=== PATIENT | female | born 1940 | race Caucasian/White ===

== ENCOUNTER 2020-05-23 06:02 | Inpatient (IN) | payer MEDICARE, MEDICAID, SELFPAY ==
[2020-05-23] VITALS (8 sets, daily range): BP systolic 117–141; BP diastolic 54–72; PULSE 65–94; RESP 18–22; TEMP 36.3–36.8; O2SAT 85–96; BMI 21.9
--- NOTE | ~2020-05-23 | XR_ITS ---
EXAMINATION: XR chest 1V portable DATE: 05/23/2020 06:53 INDICATION: COVID. Shortness of breath. TECHNIQUE: frontal view of the chest was obtained. COMPARISON: None FINDINGS: Biapical pleural-parenchymal scarring. Mild increased interstitial pattern in the lateral lower lung zones. No pleural effusion or pneumothorax. The cardiomediastinal silhouette is normal. Vertebroplast ies at a couple levels in the upper lumbar spine. IMPRESSION: 1. Mild increased interstitial pattern in the lower lung zones which could represent mild pulmonary e marysol or bronchitis. Reviewed, dictated and finalized at location A. NT INTEGRATION MANAGER IMPRESSION: 1. Mild increased interstitial pattern in the lower lung zones which could repr esent mild pulmonary edema or bronchitis.
--- NOTE | 2020-05-23 05:59 | ED.SOB ---
HPI - SOB/Dyspnea General Chief Complaint: Shortness of Breath/Dyspnea Stated Complaint: SOB Source: EMS Mode of arrival: EMS Limitations: dementia History of Present Illness HPI Narrative: Patient is an 80-year-old female with history of dementia, recent Covid diagnosis who presents to the emergency department for evaluation of low oxygen saturation. Per care facility, patient had oxygen saturation of 77% on room air this morning. EMS was called, at the time of arrival, oxygen saturation per EMS is 87% on room air. Patient was transported to our facility in stable condition. Apparently, she refused IV placement EMS. Patient refusing to wear oxygen in the ER. She is refusing answer any questions. She will state her name. She denies any pain. Patient states her morning is not going very well and she does not want to be here. Pt is a DNR. Related Data Home Medications Medication Instructions Recorded Confirmed aspirin [Aspir-81] 81 mg PO DAILY 05/23/20 buspirone 5 mg PO BID 05/23/20 buspirone 10 mg PO TID 05/23/20 calcium [Oyster Shell Calcium] mg 05/23/20 cholecalciferol (vitamin D3) 125 mcg PO DAILY 05/23/20 [Vitamin D3] diphenhydramine HCl [Benadryl] 25 mg PO HS PRN 05/23/20 divalproex [Depakote ER] mg PO 05/23/20 donepezil 5 mg PO HS 05/23/20 ferrous sulfate 143 mg PO DAILY 05/23/20 ipratropium-albuterol [Combivent] spray INHALATION 05/23/20 levothyroxine 75 mcg PO DAILY 05/23/20 lorazepam [Ativan] 0.5 mg PO BID PRN 05/23/20 methotrexate sodium 2.5 mg PO WEEKLY 05/23/20 mirabegron [Myrbetriq] 25 mg PO DAILY 05/23/20 multivit-min #56-FA-vit K-Q10 tablet PO 05/23/20 [DEKAs Plus (folic acid)] polyethylene glycol 3350 [Miralax] 17 g PO BID 05/23/20 sennosides-docusate sodium [Senna 1 tab-cap PO HS 05/23/20 with Docusate Sodium] Allergies Allergy/AdvReac Type Severity Reaction Status Date / Time celecoxib [From Celebrex] Allergy Unknown Verified 05/23/20 06:24 codeine Allergy Unknown Verified 05/23/20 06:24 meperidine Allergy Unknown Verified 05/23/20 06:24 Review of Systems Review of Systems: ROS unobtainable: Yes unobtainable due to medical condition (dementia) [facility] Past Medical History Medical History (Updated 05/23/20 @ 06:35 by Maddy Gauthier MD) Dementia Exam Narrative: Exam Narrative: GENERAL: Awake, elderly, alert, thin HEAD: Normocephalic, atraumatic. EYES: PERRLA and EOMI. ENT: Nares clear, no rhinorrhea or epistaxis. Mucous membranes dry NECK: Supple. CHEST:No severe respiratory distress, mild tachypnea, breathing even and non labored, oxygen 75% on room air HEART: Regular rate, sinus rhythm ABDOMEN:Non distended, non tender EXTREMITIES: Normal range of motion. No edema. SKIN: Warm, dry, no rash. NEURO:No focal deficits. Alert and oriented x1-2, baseline for patient Course Vital Signs Vital signs: Vital Signs Temperature 36.5 C 05/23/20 06:00 Pulse Rate 82 05/23/20 06:00 Respiratory Rate 20 05/23/20 06:00 Blood Pressure 117/71 05/23/20 06:00 Pulse Oximetry 85 L 05/23/20 06:00 Temperature 36.5 C 05/23/20 06:00 Pulse Rate 86 05/23/20 06:52 Respiratory Rate 22 H 05/23/20 06:52 Blood Pressure 140/61 05/23/20 06:52 Pulse Oximetry 95 05/23/20 06:52 MDM - SOB/Dyspnea MDM Narrative Medical decision making narrative: Patient presented to the emergency department for evaluation of low oxygen saturation in the setting of recent Covid infection. Patient with dementia, is currently DNR status. Patient with oxygen saturations that dipped to as low as 77% on room air at the time of my assessment in the ER. Patient does not appear to have any damaris respiratory distress. She is somewhat reticent and participating in the history initially refusing stating that she does not want to be here and does not want to wear oxygen. After speaking with her daughter who is her emergency contact and power of commercial real estate attorney, patient's daughter was able t
--- NOTE | 2020-05-23 06:05 | ECG_ITS ---
Measurements Intervals [place] Rate: 84 P: 34 [place]: 160 QRS: 11 QRSD: 94 T: 2 QT: 341 QTc: 404 Interpretive Statements SINUS RHYTHM POSSIBLE LEFT ATRIAL ENLARGEMENT CONSIDER INFERIOR INFARCT, AGE INDETERMINATE BASELINE ARTIFACT- I, II, III, AVR, AVL, AVF, V4 ABNORMAL ECG Electronically Signed On 05-23-2020 7:17:51 [employer] by Nishant Montenegro D.O.
--- NOTE | 2020-05-23 06:07 | PC.NURSE ---
Patient refusing oxygen at this time.
--- NOTE | 2020-05-23 06:23 | PC.NURSE ---
Patient oxygen sat to 81%. ERP in room. Patient refusing to wear any oxygen.
[2020-05-23 06:30] LABS: Alveolar/Arterial O2 Gradient 61.7 mmHg; Base Excess ABG 0.2 mEq/l (+/-2.0); Carboxyhemoglobin 0.9 % THb (0-2.0); Fractional Inspired Oxygen 21 %; Methemoglobin ABG 0.2 %THb (0-1.5); Oxygen Content ABG 12.4 %vol (16.0-22.0); Oxygen Saturation ABG 83.3 % (95.0-100.0); Oxyhemoglobin 78.8 % THb (90.0-100.0); PCO2 ABG 35.8 mmHg (35.0-45.0); PO2 ABG 45.2 mmHg (80.0-100.0); PO2 FiO2 Ratio Arterial Blood 2.15 %; Reduced Hemoglobin 20.1 %THb (0-5.0); Total Hemoglobin 11.2 g/dL (12.0-18.0); pH ABG 7.444 (7.350-7.450)
[2020-05-23 06:30] LABS: Basophils Percent Auto 0.5 % (0.2-1.2); Eosinophils Absolute Auto 0.3 K/mm3 (0-0.3); Eosinophils Percent Auto 4.2 % (0-4.4); Hematocrit 34.4 % (37.0-47.0); Hemoglobin 10.8 g/dL (12.0-15.0); Immature Granulocyte Absolute 0.06 K/mm3 (0.00-0.031); Immature Granulocyte Percent A 0.8 % (0-0.5); Lymphocytes Absolute Auto 2.26 K/mm3 (0.9-3.2); Lymphocytes Percent Auto 30.5 % (18.3-44.2); Mean Corpuscular HGB Conc 31.4 g/dl (32-36); Mean Corpuscular Hemoglobin 29.3 pg (26-34); Mean Corpuscular Volume 93.5 fl (80-100); Mean Platelet Volume 9.5 fl (7.4-10.4); Monocytes Absolute Auto 0.7 K/mm3 (0.1-0.6); Monocytes Percent Auto 8.9 % (2.6-8.5); Neutrophils Absolute Auto 4.1 K/mm3 (1.3-6.7); Neutrophils Percent Auto 55.1 % (45.5-73.1); Platelet Count Result 189 k/mm3 (150-375); Red Blood Count 3.68 M/mm3 (4.2-5.4); Red Cell Distribution Width 22.8 % (11.5-14.5); White Blood Count 7.4 K/mm3 (4.5-10.0)
[2020-05-23 06:31] LABS: Device ROOM AIR; Site Drawn RIGHT BRACHIAL
[2020-05-23 06:40] LABS: INR 0.9; Prothrombin Time 13.2 Seconds (11.1-14.7)
[2020-05-23 06:41] LABS: Partial Thromboplastin Time 28.1 SECONDS (22.3-36.8)
[2020-05-23 06:45] LABS: Alanine Aminotransferase 12 U/L (4-35); Albumin Level 3.5 g/dL (3.5-5.1); Alkaline Phosphatase 76 U/L (38-126); Anion Gap 4 mmol/L (8-16); Aspartate Amino Transferase 34 U/L (14-36); Bilirubin,Total 0.2 mg/dL (0.2-1.3); Blood Urea Nitrogen 26 mg/dL (7-17); CRP 0.5 mg/dL (<1.0); Calcium 8.5 mg/dL (8.4-10.2); Carbon Dioxide 28 mmol/L (22-30); Chloride 107 mmol/L (98-107); Estimated Glomerular Filt Rate > 60; Glucose 87 mg/dL (65-105); Sodium 139 mmol/L (137-145)
--- NOTE | 2020-05-23 06:46 | PC.NURSE ---
[id number] Patient ambulated to phone to speak with her daughter, BLANCA. After speaking with her daughter, patient agreed to wear oxygen via NC. Patient placed on 2L via NC. Patient tolerating well.
[2020-05-23 06:53] LABS: NT Pro B Type Natriuretic Pept 348 PG/ML (5-100); Troponin I < 0.012 ng/mL (0.000-0.034)
--- NOTE | 2020-05-23 08:51 | ADMGEN ---
This patient, Rodrick Cruz, was admitted to [facility] Room 333-. Patient/family oriented to hospital policies and general routines including ID bracelet, bed and alarms, visiting hours, pain management, procedures, bathroom and other care routines, personal items, smoking policy, room service/diet, and visiting hours. Information on how to activate the Rapid Response Team has been discussed. Patient/Family are encouraged to report perceived risks to care and to ask questions if they do not understand what they are told or what they should do.
--- NOTE | 2020-05-23 09:58 | PM.IMHP ---
H&P: HPI History of Present Illness Date/Time: 05/23/20 09:58 Chief complaint: Acute hypoxic respiratory failure, COVID 19 Narrative: Rodrick Cruz is a 80 year old female care home resident who was sent to the emergency department because of low oxygen saturation. She had a recent diagnosis of COVID-19. At the facility she was 77% on room air on the morning of May 23. With EMS she was 87% on room air. Patient refused to wear oxygen allow IV access or answer any questions. She is not combative. She does cooperate with exam but does not follow instructions. History was obtained by review of the chart and by phone conversation with her daughter Niesha who is power of estate planning attorney. Review of Systems Review of Systems: ROS unobtainable: Yes unobtainable due to mental status PMFSH Past Medical History Medical History (Updated 05/23/20 @ 14:16 by Agustin Drew MD) Alzheimer's dementia with behavioral disturbance Dementia Hypothyroidism (acquired) Rheumatoid arthritis Surgical History Surgical History (Updated 05/23/20 @ 14:16 by Agustin Drew MD) H/O foot surgery Family History Family History (Updated 05/23/20 @ 14:17 by Agustin Drew MD) Father No problems noted. Mother No problems noted. Social History Social History (Updated 05/23/20 @ 14:18 by Agustin Drew MD) Social History: . [place] resident. Does not currently smoke, drink, or utilize recreational drugs. Daughter, Niesha, is POA. Patient is DNR status. Meds Home Medications and Allergies Home Medications Medication Instructions Recorded Confirmed Type aspirin [Aspir-81] 81 mg PO DAILY 05/23/20 History buspirone 5 mg PO BID 05/23/20 History buspirone 10 mg PO TID 05/23/20 History calcium [Oyster Shell Calcium] mg 05/23/20 History cholecalciferol (vitamin D3) 125 mcg PO DAILY 05/23/20 History [Vitamin D3] diphenhydramine HCl [Benadryl] 25 mg PO HS PRN 05/23/20 History divalproex [Depakote ER] mg PO 05/23/20 History donepezil 5 mg PO HS 05/23/20 History ferrous sulfate 143 mg PO DAILY 05/23/20 History ipratropium-albuterol [Combivent] spray INHALATION 05/23/20 History levothyroxine 75 mcg PO DAILY 05/23/20 History lorazepam [Ativan] 0.5 mg PO BID PRN 05/23/20 History methotrexate sodium 2.5 mg PO WEEKLY 05/23/20 History mirabegron [Myrbetriq] 25 mg PO DAILY 05/23/20 History multivit-min #56-FA-vit K-Q10 tablet PO 05/23/20 History [DEKAs Plus (folic acid)] polyethylene glycol 3350 [Miralax] 17 g PO BID 05/23/20 History sennosides-docusate sodium [Senna 1 tab-cap PO HS 05/23/20 History with Docusate Sodium] Allergies Allergy/AdvReac Type Severity Reaction Status Date / Time celecoxib [From Celebrex] Allergy Unknown Verified 05/23/20 06:24 codeine Allergy Unknown Verified 05/23/20 06:24 meperidine Allergy Unknown Verified 05/23/20 06:24 Vital Signs Vital Signs - 24 hr 05/23/20 06:00 05/23/20 06:52 05/23/20 07:29 Temperature 97.7 F Pulse Rate 82 86 94 Respiratory Rate 20 22 H 20 Blood Pressure 117/71 140/61 138/71 Pulse Oximetry 87 L 95 92 05/23/20 08:15 05/23/20 08:20 Temperature 98.1 F Pulse Rate 91 83 Respiratory Rate 20 18 Blood Pressure 141/72 H 128/62 Pulse Oximetry 95 94 Exam Narrative: Exam Narrative: HEENT: EOMI, PERRL, sclerae nonicteric, pharyngeal mucosa pink and intact NECK: No JVD CHEST: Coarse breath sounds. Normal effort. HEART: NL S1/S2, regular, no murmur ABDOMEN: BS+, soft, nontender, no mass, no bruits EXTREMITIES: No cyanosis, edema, or clubbing NEUROLOGIC: CN intact and symmetric to inspection. MUSCULOSKELETAL: Tone and strength symmetric. PSYCH: Drowsy. Arouses easily. Response to name. Will not speak. Does not follow simple instructions. H&P: Results Labs Labs: Short CBC 05/23/20 Range/Units 06:22 WBC 7.4 (4.5-10.0) K/mm3 Hgb 10.8 L (12.0-15.0) g/dL Hct 34.4 L (37.0-47.0)
[2020-05-23] MEDS: DEXAMETHASONE 2 MG TABLET 6 MG PO (16:29)
[2020-05-23] MEDS: ENOXAPARIN 40 MG/0.4 ML SYRINGE SUB-Q (19:28)
[2020-05-23] MEDS: DOXYCYCLINE HYCLATE 100 MG TABLET PO (21:24)
[2020-05-24] VITALS: BP 121/66; PULSE 65; RESP 20; TEMP 36.2; O2SAT 92
[2020-05-24 04:00] VITALS: BP 129/68; PULSE 64; RESP 20; TEMP 36.3; O2SAT 95
--- NOTE | 2020-05-24 07:37 | PM.IMPN ---
Progress Note: A&P Assessment and Plan (1) Respiratory failure: Qualifiers: Chronicity: acute Respiratory failure complication: hypoxia Qualified Code(s): J96.01 - Acute respiratory failure with hypoxia Code(s): J96.90 - Respiratory failure, unspecified, unspecified whether with hypoxia or hypercapnia Status: Acute Assessment and Plan: oxygen saturation 97% on 2 L on 05/24 (2) Pneumonia due to 2019-nCoV: Code(s): U07.1 - COVID-19; J12.89 - Other viral pneumonia Status: Acute Assessment and Plan: As she refused IV access, proceed 05/23 started PO dexamethasone and doxycycline As she is improving on 05/24, will continue (3) Rheumatoid arthritis: Code(s): M06.9 - Rheumatoid arthritis, unspecified Status: Acute Assessment and Plan: Continue PO mtx weekly (4) Alzheimer's dementia with behavioral disturbance: Code(s): G30.9 - Alzheimer's disease, unspecified; F02.81 - Dementia in other diseases classified elsewhere with behavioral disturbance Status: Acute Assessment and Plan: Continue home regimen (5) Hypothyroidism (acquired): Code(s): E03.9 - Hypothyroidism, unspecified Status: Acute Assessment and Plan: Continue home regimen Subjective Date/time seen: 05/24/20 07:37 Interval history: 05/24. Feels much better. Eating well. Cooperative and speaking with caregivers. Denied chest pain, shortness of breath, nausea, abdominal pain, diarrhea, dysuria, edema, rash, itching, fever, chills. Review of Systems Review of Systems: All systems reviewed & are unremarkable except as noted in HPI and below Exam Narrative: Exam Narrative: HEENT: EOMI, PERRL, sclerae nonicteric, pharyngeal mucosa pink and intact NECK: No JVD CHEST: Coarse breath sounds. Normal effort. HEART: NL S1/S2, regular, no murmur ABDOMEN: BS+, soft, nontender, no mass, no bruits EXTREMITIES: No cyanosis, edema, or clubbing NEUROLOGIC: CN intact and symmetric to inspection. MUSCULOSKELETAL: Tone and strength symmetric. PSYCH: Alert. Oriented to person place and year. Thought month was March or April. Objective Data Vital Signs Vital Signs: Vital Signs - 24 hr 05/23/20 08:15 05/23/20 08:20 05/23/20 12:00 Temperature 98.1 F 98.3 F Pulse Rate 91 83 86 Respiratory Rate 20 18 18 Blood Pressure 141/72 H 128/62 123/61 Pulse Oximetry 95 94 96 05/23/20 16:00 05/23/20 20:00 05/24/20 00:00 Temperature 97.4 F L 97.6 F 97.2 F L Pulse Rate 70 65 65 Respiratory Rate 18 20 20 Blood Pressure 130/55 L 118/54 L 121/66 Pulse Oximetry 95 93 92 05/24/20 04:00 Temperature 97.4 F L Pulse Rate 64 Respiratory Rate 20 Blood Pressure 129/68 Pulse Oximetry 95 Intake/Output Intake/Output: Intake & Output 05/21/20 05/22/20 05/23/20 05/24/20 23:59 23:59 23:59 23:59 Intake Total 240 100 Balance 240 100 Meds/Results Medications: Active Medications Generic Name Dose Route Start Last Admin Trade Name Freq PRN Reason Stop Dose Admin Acetaminophen 650 mg 05/23/20 06:59 Acetaminophen 325 Mg Tablet PO Q4H PRN Mild Pain (1-3) or Fever Dexamethasone 6 mg 05/24/20 09:00 Dexamethasone 2 Mg Tablet PO 06/02/20 09:01 QAM RONALDO Doxycycline Hyclate 100 mg 05/23/20 21:00 05/23/20 21:24 Doxycycline Hyclate 100 Mg Tablet PO 100 mg Q12HR RONALDO Administration Enoxaparin Sodium 40 mg 05/23/20 18:00 05/23/20 19:28 Enoxaparin 40 Mg/0.4 Ml Syringe SUB-Q 40 mg QPM RONALDO Administration Radiology Results: ITS Impressions Chest X-Ray 05/23/20 09:35 IMPRESSION: 1. Mild increased interstitial pattern in the lower lung zones which could represent mild pulmonary edema or bronchitis. Quality VTE Prophylaxis VTE prophylaxis: pharmacologic ordered
[2020-05-24 08:00] VITALS: BP 138/57; PULSE 60; RESP 18; TEMP 36.3; O2SAT 97; O2SAT 99
[2020-05-24 08:50] LABS: Hematocrit 34.7 % (37.0-47.0); Hemoglobin 10.9 g/dL (12.0-15.0); Mean Corpuscular HGB Conc 31.4 g/dl (32-36); Mean Corpuscular Hemoglobin 29.3 pg (26-34); Mean Corpuscular Volume 93.3 fl (80-100); Mean Platelet Volume 10.2 fl (7.4-10.4); Platelet Count Result 210 k/mm3 (150-375); Red Blood Count 3.72 M/mm3 (4.2-5.4); Red Cell Distribution Width 22.5 % (11.5-14.5); White Blood Count 7.3 K/mm3 (4.5-10.0)
[2020-05-24 09:01] LABS: D Dimer 0.31 ug/mL (<0.48)
[2020-05-24 09:17] LABS: Troponin I < 0.012 ng/mL (0.000-0.034)
[2020-05-24 09:46] LABS: Lactate Dehydrogenase 398 U/L (313-618)
[2020-05-24 09:48] LABS: CRP 0.6 mg/dL (<1.0)
[2020-05-24 09:52] LABS: Alanine Aminotransferase 20 U/L (4-35); Albumin Level 3.5 g/dL (3.5-5.1); Alkaline Phosphatase 60 U/L (38-126); Anion Gap 7 mmol/L (8-16); Aspartate Amino Transferase 36 U/L (14-36); Bilirubin,Total 0.2 mg/dL (0.2-1.3); Blood Urea Nitrogen 26 mg/dL (7-17); Calcium 8.3 mg/dL (8.4-10.2); Carbon Dioxide 27 mmol/L (22-30); Chloride 107 mmol/L (98-107); Estimated CRCL calculation 42 ml/min; Estimated Glomerular Filt Rate > 60; Glucose 111 mg/dL (65-105); Potassium 4.1 mmol/L (3.4-5.0); Sodium 141 mmol/L (137-145)
[2020-05-24 10:30] VITALS: O2SAT 97
[2020-05-24] MEDS: DEXAMETHASONE 2 MG TABLET 6 MG PO (10:43)
[2020-05-24] MEDS: DOXYCYCLINE HYCLATE 100 MG TABLET PO (10:43)
[2020-05-24 12:00] VITALS: BP 107/51; PULSE 66; RESP 18; TEMP 36.9; O2SAT 94
--- NOTE | 2020-05-24 13:28 | PM.DS ---
DS: Admitting Diagnosis Admitting Diagnosis Admitting Diagnosis: Acute hypoxic respiratory failure, COVID 19 DS: Discharge Diagnosis Discharge Diagnosis (1) Respiratory failure: Qualifiers: Chronicity: acute Respiratory failure complication: hypoxia Qualified Code(s): J96.01 - Acute respiratory failure with hypoxia Code(s): J96.90 - Respiratory failure, unspecified, unspecified whether with hypoxia or hypercapnia Status: Acute Assessment and Plan: oxygen saturation 97% on R/a on 05/24 (2) Pneumonia due to 2019-nCoV: Code(s): U07.1 - COVID-19; J12.89 - Other viral pneumonia Status: Acute Assessment and Plan: As she refused IV access, proceed 05/23 started PO dexamethasone and doxycycline As she is improving on 05/24, will continue (3) Rheumatoid arthritis: Code(s): M06.9 - Rheumatoid arthritis, unspecified Status: Acute Assessment and Plan: Continue PO mtx weekly (4) Alzheimer's dementia with behavioral disturbance: Code(s): G30.9 - Alzheimer's disease, unspecified; F02.81 - Dementia in other diseases classified elsewhere with behavioral disturbance Status: Acute Assessment and Plan: Continue home regimen (5) Hypothyroidism (acquired): Code(s): E03.9 - Hypothyroidism, unspecified Status: Acute Assessment and Plan: Continue home regimen DS: Summary Hospital Course Reason for hospitalization: hypoxia Hospital Course: 80-year-old female longterm resident was recently diagnosed with COVID-19. She was admitted due to O2 saturations 77 to mid 80s. She received oxygen 2 L by nasal cannula overnight. Saturation improved to 97% on room air by day of discharge. She was treated with doxycycline and dexamethasone orally. She initially refused to use oxygen or allowed IV to be placed. However on the day of discharge she was very cooperative And pleasant. Status at Discharge Overall status at discharge: patient is back to baseline Time Spent with Patient Time attestation: Total time spent providing and/or coordinating discharge services: Exam Narrative: Exam Narrative: HEENT: EOMI, PERRL, sclerae nonicteric, pharyngeal mucosa pink and intact NECK: No JVD CHEST: Coarse breath sounds. Normal effort. HEART: NL S1/S2, regular, no murmur ABDOMEN: BS+, soft, nontender, no mass, no bruits EXTREMITIES: No cyanosis, edema, or clubbing NEUROLOGIC: CN intact and symmetric to inspection. MUSCULOSKELETAL: Tone and strength symmetric. PSYCH: Alert. Oriented to person place and year. Thought month was March or April. DS: Data Data Completed and Pending Labs on day of discharge: Labs from last 24 hours 05/24/20 05/24/20 05/24/20 08:16 08:16 08:16 WBC RBC Hgb Hct MCV MCH MCHC RDW Plt Count MPV D-Dimer Sodium Potassium Chloride Carbon Dioxide Anion Gap BUN Creatinine Estim Creat Clear Calc Estimated GFR Glucose Calcium Ferritin 83.90 Total Bilirubin AST ALT Alkaline Phosphatase Lactate Dehydrogenase 398 Troponin I C-Reactive Protein 0.6 Total Protein Albumin 05/24/20 05/24/20 05/24/20 08:16 08:16 08:16 WBC 7.3 RBC 3.72 L Hgb 10.9 L Hct 34.7 L MCV 93.3 MCH 29.3 MCHC 31.4 L RDW 22.5 H Plt Count 210 MPV 10.2 D-Dimer 0.31 Sodium 141 Potassium 4.1 Chloride 107 Carbon Dioxide 27 Anion Gap 7 L BUN 26 H Creatinine 0.70 Estim Creat Clear Calc 42 Estimated GFR > 60 Glucose 111 H Calcium 8.3 L Ferritin Total Bilirubin 0.2 AST 36 ALT 20 Alkaline Phosphatase 60 Lactate Dehydrogenase Troponin I < 0.012 C-Reactive Protein Total Protein 7.0 Albumin 3.5 Discharge Plan Discharge Discharging Clinician: Agustin Drew Patient Disposition: [facility]
[2020-05-24] MEDS: busPIRone HCL 10 MG TABLET PO (15:50)
[2020-05-24] MEDS: DIVALPROEX SODIUM 250 MG TAB.ER.24H PO (15:50)
[2020-05-24] MEDS: LORazepam (*CRX) 0.5 MG TABLET PO (15:50)
== END 2020-05-24 17:35 | DRG 177 ==
LOC: ANHED 06:35 → ANH3MEDSUR 07:55
PROVIDERS: Admitting Provider Student in an Organized Health Care Education/Training Program; Emergency Provider Emergency Medicine; PCP Family Medicine; Visit Provider Internal Medicine
DX: U07.1 COVID-19 (principal); J12.89 Other viral pneumonia; J96.01 Acute respiratory failure with hypoxia; F02.81 Dementia in other diseases classified elsewhere, unspecified severity, with behavioral disturbance; G30.9 Alzheimer's disease, unspecified; M06.9 Rheumatoid arthritis, unspecified; E03.9 Hypothyroidism, unspecified
CPT/HCPCS: 36415; 36600; 71045; 80053; 82375; 82728; 82805; 83050; 83615; 83880; 84484; 85025; 85027; 85380; 85610; 85730; 86140; 93005; 96374; 99285; A9270; G0378; J1100; J1650; J8540

== ENCOUNTER 2020-07-04 10:28 | Inpatient (IN) | payer MEDICARE, MEDICAID, SELFPAY ==
[2020-07-04] VITALS (8 sets, daily range): BP systolic 109–144; BP diastolic 42–67; PULSE 57–87; RESP 12–20; TEMP 36.5–37.1; O2SAT 87–96
--- NOTE | ~2020-07-04 | XR_ITS ---
EXAMINATION: XR chest 1V INDICATION: Pain after fall, history of COVID 19 TECHNIQUE: Portable AP chest at 1059 hours COMPARISON: 03/23/2020 FINDINGS: There are patchy peripheral predominant opacities of the lungs. No pleural effusion or pneu mothorax is identified. The heart size is normal for technique. Vertebroplasty changes noted in the u pper lumbar spine. IMPRESSION: 1. Patchy opacities of the lungs which could reflect sequela of COVID 19 pneumonia. Reviewed, dictated and finalized at location A. ICATOR FOAM RUBBER IMPRESSION: 1. Patchy opacities of the lungs which could reflect sequela of COVID 19 pneumo manjinder.
--- NOTE | ~2020-07-04 | XR_ITS ---
EXAMINATION: XR surgery orthopedic DATE: 07/06/2020 16:12 INDICATION: Intertrochanteric fracture of proximal right femur. TECHNIQUE: 4 intraoperative fluoroscopic views of right hip were obtained. I was not present. Fluoros copy exposure time was 36 seconds. COMPARISON: Right hip radiographs 07/04/2020 FINDINGS: There is a comminuted intertrochanteric fracture of proximal right femur. The main distal f racture fragment demonstrates near-anatomic alignment status post open reduction internal fixation wi th long intramedullary abel and femoral head/neck screw. IMPRESSION: 1. Comminuted intertrochanteric fracture of proximal right femur status post open reduction internal fixation. Reviewed, dictated and finalized at location A. T GROWER IMPRESSION: 1. Comminuted intertrochanteric fracture of proximal right femur status post op en reduction internal fixation.
--- NOTE | ~2020-07-04 | XR_ITS ---
EXAMINATION: XR hip RT 2V w AP pelvis INDICATION: Right hip pain, initial encounter TECHNIQUE: AP view the pelvis and two views of the right hip are obtained. COMPARISON: None available FINDINGS: There is acute, traumatic, closed, comminuted, intertrochanteric fracture of the right femu r. The femoral head is seated in the acetabulum. No additional acute osseous findings are evident. Th ere is calcified atherosclerosis. IMPRESSION: 1. Comminuted, intertrochanteric right hip fracture. Reviewed, dictated and finalized at location A. MOLDER
--- NOTE | ~2020-07-04 | CT_ITS ---
EXAMINATION: CTA chest PE protocol EXAM DATE: 07/08/2020 12:33 INDICATION: Hypoxia. TECHNIQUE: Spiral CTA of the chest (pulmonary arteries) was performed with 100 cc Omnipaque 350 intr avenous contrast injection. Images were acquired during the pulmonary arterial phase. Coronal maxi mum intensity projection 3D-reconstructions were created by the technologist on dedicated workstation . Axial, coronal and sagittal reformatted images were reviewed. The dose-length product (DLP) for t his examination was 192.38 mGy-cm. The exposure was tailored according to patient size (auto mA exp osure control), and iterative reconstruction (ASIR) was used as additional dose reduction technique. There is no prior study for comparison. FINDINGS: Pulmonary arteries are well opacified and without intraluminal filling defects. No thora cic aortic dissection. There is subsegmental region of confluent right upper lobe airspace disease w hich could be pneumonia or cancer, please clinically correlate. Follow-up imaging is recommended once acute symptoms resolve. There is moderate emphysema and pulmonary fibrosis. There are no pleural or pericardial effusions. Tracheobronchial tree is patent. There is no mediastinal, hilar or axilla ry lymphadenopathy. There is no pneumothorax. Mild cardiomegaly. There is mild to moderate coron lino arterial calcification, arterial sclerosis. Upper abdomen is unremarkable. There is thoracic s pondylosis without osteoblastic or osteolytic lesions identified. IMPRESSION: 1. Subsegmental right upper lobe consolidation, probably pneumonia or less likely cancer. Consider 1 -3 month follow-up chest CT without contrast 2. Moderate emphysema and pulmonary fibrosis. 3. Mild cardiomegaly. Reviewed, dictated and finalized at location A. O WORKER IMPRESSION: 1. Subsegmental right upper lobe consolidation, probably pneumonia or less lik karen cancer. Consider 1-3 month follow-up chest CT without contrast 2. Moderate emphysema and pulmonary fibrosis. 3. Mild cardiomegaly.
--- NOTE | ~2020-07-04 | CT_ITS ---
EXAMINATION: CT brain wo con INDICATION: Headache COMPARISON: None TECHNIQUE: Standard unenhanced head CT. The dose-length product (DLP) was 605.33 mGy-cm. The mA was a djusted according to patient size. Iterative reconstruction technique was employed. FINDINGS: There is no acute intraparenchymal hemorrhage. No evidence of mass lesion. No evidence of a cute infarction. There is moderate periventricular and subcortical hypodensity probably related to sm all vessel ischemic disease. There is moderate prominence of the sulci and ventricles related to cere bral atrophy. Intracranial calcified cerebral atherosclerosis is noted. There are no extra-axial unruly ections. There is no mass effect or midline shift. Changes in the globes are likely from ocular lens surgery. The visualized sinuses and mastoid air cells are well aerated. IMPRESSION: 1. No acute intracranial abnormality. 2. Age related findings. Reviewed, dictated and finalized at location A. ER/WAITRESS HEAD
--- NOTE | ~2020-07-04 | XR_ITS ---
EXAMINATION: XR chest 1V portable DATE: 07/08/2020 09:05 INDICATION: Hypoxia. TECHNIQUE: A single frontal view of the chest was obtained. COMPARISON: Chest single view 07/04/2020, 05/23/2020 FINDINGS: The lung volumes are normal. There is a diffuse interstitial pattern in the lungs with a pe ripheral predominance. There are mild airspace opacities in all right lung zones and in left lower jose m ng zone. No pleural effusion or pneumothorax. The heart size is normal. There are changes of vertebro plasty in lumbar spine. IMPRESSION: 1. Stable diffuse lung disease, consistent with pulmonary edema versus pneumonia and likely some comp onent of chronic lung disease. Reviewed, dictated and finalized at location A. SE COOK IMPRESSION: 1. Stable diffuse lung disease, consistent with pulmonary edema versus pneumoni a and likely some component of chronic lung disease.
--- NOTE | 2020-07-04 10:34 | ECG_ITS ---
Measurements Intervals [place] Rate: 59 P: 51 MD: 151 QRS: 34 QRSD: 89 T: -8 QT: 441 QTc: 440 Interpretive Statements SINUS BRADYCARDIA WITH SINUS ARRHYTHMIA CONSIDER INFERIOR INFARCT, AGE INDETERMINATE BASELINE ARTIFACT- I, II, III, AVL, AVF, V1, V4-V6 ABNORMAL ECG Electronically Signed On 07-04-2020 15:51:58 WOOL CLASSER by Nishant Montenegro D.O.
[2020-07-04 11:38] LABS: Prothrombin Time 13.7 Seconds (11.1-14.7)
[2020-07-04 11:39] LABS: Partial Thromboplastin Time 26.9 SECONDS (22.3-36.8)
[2020-07-04] MEDS: SODIUM CHLORIDE 0.9% IV 500 ML 999 ML IV CONT (11:43)
[2020-07-04 12:08] LABS: Basophils Percent Auto 0.3 % (0.2-1.2); Eosinophils Percent Auto 0.2 % (0-4.4); Hematocrit 29.2 % (37.0-47.0); Hemoglobin 8.9 g/dL (12.0-15.0); Immature Granulocyte Absolute 0.05 K/mm3 (0.00-0.031); Immature Granulocyte Percent A 0.5 % (0-0.5); Lymphocytes Absolute Auto 1.42 K/mm3 (0.9-3.2); Lymphocytes Percent Auto 15.3 % (18.3-44.2); Mean Corpuscular HGB Conc 30.5 g/dl (32-36); Mean Corpuscular Hemoglobin 30.3 pg (26-34); Mean Corpuscular Volume 99.3 fl (80-100); Mean Platelet Volume 9.4 fl (7.4-10.4); Monocytes Absolute Auto 0.9 K/mm3 (0.1-0.6); Monocytes Percent Auto 9.5 % (2.6-8.5); Neutrophils Absolute Auto 6.9 K/mm3 (1.3-6.7); Neutrophils Percent Auto 74.2 % (45.5-73.1); Platelet Count Result 293 k/mm3 (150-375); Red Blood Count 2.94 M/mm3 (4.2-5.4); White Blood Count 9.3 K/mm3 (4.5-10.0)
[2020-07-04 12:32] LABS: Anion Gap 1 mmol/L (8-16); Blood Urea Nitrogen 27 mg/dL (7-17); Calcium 8.4 mg/dL (8.4-10.2); Carbon Dioxide 28 mmol/L (22-30); Chloride 109 mmol/L (98-107); Estimated CRCL calculation 44 ml/min; Estimated Glomerular Filt Rate > 60; Glucose 106 mg/dL (65-105); Potassium 4.1 mmol/L (3.4-5.0); Sodium 138 mmol/L (137-145)
--- NOTE | 2020-07-04 12:39 | PC.NURSE ---
Pt in room laying in bed yelling hey hey hekayleigh hey when staff goes in room and asks what she needs pt states i don;t know Staff has readjusted, and covered pt multiple times
--- NOTE | 2020-07-04 13:15 | ED.GENADULT ---
HPI - General Adult General Chief complaint: Extremity Injury, Lower Stated complaint: right hip fracture Source: patient, family, EMS and old records reviewed Mode of arrival: EMS Limitations: clinical condition and dementia History of Present Illness HPI narrative: Patient is a 80-year-old female who presents to emergency department for evaluation of right hip fracture found on imaging a [facility] patient notes pain to the left hip on arrival however patient is unreliable historian secondary to dementia patient is alert and oriented to self patient repeats herself and answers yes to all questions. Patient had had Covid in the past and is vaccinated as well. Related Data Home Medications Medication Instructions Recorded Confirmed Myrbetriq 25 mg PO DAILY 05/23/20 05/23/20 aspirin 81 mg PO DAILY 05/23/20 05/23/20 buspirone 10 mg PO TID 05/23/20 05/23/20 calcium 1,250 mg PO DAILY 05/23/20 05/23/20 divalproex [Depakote ER] 250 mg PO TID 05/23/20 05/23/20 donepezil 5 mg PO HS 05/23/20 05/23/20 ferrous sulfate 325 mg PO DAILY 05/23/20 05/23/20 ipratropium-albuterol 1 spray INHALATION QID 05/23/20 05/23/20 levothyroxine 75 mcg PO DAILY 05/23/20 05/23/20 methotrexate sodium 2.5 mg PO WEEKLY 05/23/20 05/23/20 polyethylene glycol 3350 [Miralax] 17 g PO BID 05/23/20 05/23/20 sennosides-docusate sodium [Senna 1 tab-cap PO HS 05/23/20 05/23/20 with Docusate Sodium] folic acid 1 mg PO DAILY 07/04/20 07/04/20 lorazepam [Ativan] 0.5 mg PO DAILY PRN 07/04/20 07/04/20 Allergies Allergy/AdvReac Type Severity Reaction Status Date / Time celecoxib [From Celebrex] Allergy Unknown Verified 07/04/20 11:20 ciprofloxacin [From Cipro] Allergy Unknown Verified 07/04/20 11:20 codeine Allergy Unknown Verified 07/04/20 11:20 meperidine Allergy Unknown Verified 07/04/20 11:20 Review of Systems Review of Systems: ROS unobtainable: Yes unobtainable due to mental status PMFSH Past Medical History Medical History Alzheimer's dementia with behavioral disturbance Dementia Hypothyroidism (acquired) Rheumatoid arthritis Surgical History Surgical History H/O foot surgery Family History Family History (Updated 05/23/20 @ 14:17 by Agustin Drew MD) Father No problems noted. Mother No problems noted. Social History Social History Social History: . [place] resident. Does not currently smoke, drink, or utilize recreational drugs. Daughter, Niesha, is POA. Patient is DNR status. Smoking status: Unknown if ever smoked Second hand tobacco smoke exposure: No Alcohol intake: unknown Substance use: unknown Gender identity (if verbalized by the patient): Female Spiritual care concerns: No Exam Narrative: Exam Narrative: GENERAL: Well-appearing, well-nourished, and in no acute distress. HEAD: Normocephalic, atraumatic. EYES: PERRLA and EOMI. ENT: Nares clear, no rhinorrhea or epistaxis. Mucous membranes moist. CHEST: Clear to auscultation. No respiratory distress. No wheezes rales or rhonchi HEART: Regular rate and rhythm. No murmur heard. Normal peripheral pulses. ABDOMEN: Soft, nontender, nondistended EXTREMITIES: Shortening and rotation of the right lower extremity with tenderness of the right hip on palpation SKIN: Warm, dry, no rash. NEURO: No focal deficits. Alert and oriented to self. Neurovascularly intact. Apley refill less than 2 seconds PSYCH: Patient repeats herself Course Course Emergency Course: Patient will be placed in hospital for hip fracture with planned surgery by Dr. Henry to the hospitalist service for further evaluation with continued hydration patient hemodynamically stable ABCs intact. Consultations Consultation #1: Discussed case with hospitalist Artemio as well as Dr. Carreno who will help
[2020-07-04 13:48] LABS: Add Urine Microscopic? YES; Appearance Urine Clear (Clear); Bilirubin Urine Negative (Negative); Blood Urine Negative (Negative); Color Urine Yellow (Yellow); Glucose Urine UA Negative (Negative); Ketones Urine Trace mg/dL (Negative); Leukocyte Esterase Ur Negative LEU/UL (Negative); Mucus Urine Rare /lpf; Nitrate Urine Negative (Negative); Protein Urine 1+ mg/dL (Negative); RBC Urine 0-2 /hpf (0-2); Specific Grav Ur 1.026 (1.001-1.035); Squamous Epithelial Cell Urine Rare /hpf (Few); Transitional Epi Cells Urine Rare /hpf (None Seen); Urobilinogen Urine Negative mg/dL (<2.0); WBC Urine 0-3 /hpf
--- NOTE | 2020-07-04 14:15 | PM.IMHP ---
H&P: HPI History of Present Illness Date/Time: 07/04/20 14:15 Chief Complaint: Right hip fracture after fall. Narrative: This is an 80-year-old female with dementia, hypothyroidism, COPD, congestive heart failure, anemia, and rheumatoid arthritis who presented to the emergency department earlier this morning via EMS for evaluation after she was found to have a right hip fracture. Due to her significant dementia she is not a reliable historian and as such a majority of the following is obtained via a review of her electronic medical records. She had an unwitnessed fall at the group home sometime during the night, and imaging today demonstrated right hip fracture for which she was sent in for evaluation. She does not recall having a fall and complains of no pain at the time my evaluation however has noticeable pain with palpation of the right hip and with any movement of the right lower extremity. Most of the other questions that I ask of her go on answered, or answered with a yes (in inappropriate contacts) or answered in accurately. Review of Systems Review of Systems: Narrative: A review of systems is unable to be obtained accurately given her severe dementia. [facility] Past Medical History Medical History (Updated 07/04/20 @ 18:20 by Cynthia Gotti PA-C) Alzheimer's dementia with behavioral disturbance Anemia Anxiety Chronic obstructive pulmonary disease COVID-19 (~05/2020) Hypothyroidism Rheumatoid arthritis Surgical History Surgical History (Updated 07/04/20 @ 18:16 by Cynthia Gotti PA-C) History of foot surgery Family History Family History Father No problems noted. Mother Parkinson disease Sibling Congestive heart failure Social History Social History (Updated 07/04/20 @ 18:17 by Cynthia Gotti PA-C) Social History: The patient is and is a group home resident. Former smoker. No alcohol or illicit substance use. Her daughter, Keren is power of commercial attorney. She is listed as a do not resuscitate. Smoking status: Former smoker Tobacco type: cigarettes Second hand tobacco smoke exposure: No Alcohol intake: former Substance use: never Gender identity (if verbalized by the patient): Female Spiritual care concerns: No Meds Home Medications and Allergies Home Medications Medication Instructions Recorded Confirmed Type Myrbetriq 25 mg PO DAILY 05/23/20 05/23/20 History aspirin 81 mg PO DAILY 05/23/20 05/23/20 History buspirone 10 mg PO TID 05/23/20 05/23/20 History calcium 1,250 mg PO DAILY 05/23/20 05/23/20 History divalproex [Depakote ER] 250 mg PO TID 05/23/20 05/23/20 History donepezil 5 mg PO HS 05/23/20 05/23/20 History ferrous sulfate 325 mg PO DAILY 05/23/20 05/23/20 History ipratropium-albuterol 1 spray INHALATION QID 05/23/20 05/23/20 History levothyroxine 75 mcg PO DAILY 05/23/20 05/23/20 History methotrexate sodium 2.5 mg PO WEEKLY 05/23/20 05/23/20 History polyethylene glycol 3350 [Miralax] 17 g PO BID 05/23/20 05/23/20 History sennosides-docusate sodium [Senna 1 tab-cap PO HS 05/23/20 05/23/20 History with Docusate Sodium] acetaminophen [Mapap 650 mg PO Q4H PRN #0 tablet 05/24/20 Rx (acetaminophen)] folic acid 1 mg PO DAILY 07/04/20 07/04/20 History lorazepam [Ativan] 0.5 mg PO DAILY PRN 07/04/20 07/04/20 History Allergies Allergy/AdvReac Type Severity Reaction Status Date / Time celecoxib [From Celebrex] Allergy Unknown Verified 07/04/20 17:15 ciprofloxacin [From Cipro] Allergy Unknown Verified 07/04/20 17:15 codeine Allergy Unknown Verified 07/04/20 17:15 meperidine Allergy Unknown Verified 07/04/20 17:15 Penicillins Allergy Unknown Verified 07/04/20 17:15 Vital Signs Vital Signs - 24 hr 07/04/20 10:30 07/04/20 12:15 07/04/20 12:30 Temperature 97.9 F Pulse Rate 74 80 85 Respiratory Rate 12 12 14 Blood Pressure 110/51 L 109/49 L Pulse Oxi
--- NOTE | 2020-07-04 14:56 | ADMGEN ---
This patient, Glo Cruz, was admitted to 2 Medical Room 260-. Patient/family oriented to hospital policies and general routines including ID bracelet, bed and alarms, visiting hours, pain management, procedures, bathroom and other care routines, personal items, smoking policy, room service/diet, and visiting hours. Information on how to activate the Rapid Response Team has been discussed. Patient/Family are encouraged to report perceived risks to care and to ask questions if they do not understand what they are told or what they should do. report receive from TATI Melvin.
[2020-07-04] MEDS: LACTATED RINGERS 1,000 ML 75 ML IV CONT (15:33)
[2020-07-04 19:12] LABS: Hematocrit 25.8 % (37.0-47.0); Hemoglobin 7.9 g/dL (12.0-15.0)
[2020-07-04 19:13] LABS: Immature Reticulocyte Fraction 16.2 % (3.0-15.9); Reticulocyte Hemoglobin Conten 32.4 pg (28.2-35.7); Reticulocyte Percent 4.77 % (0.7-4.3); Reticulocytes Absolute 0.13 B/L (32.2-175.7)
[2020-07-04 20:18] LABS: Iron 83 ug/dL (37-170)
[2020-07-04 20:27] LABS: Percent Iron Saturation 24 % (20-50)
[2020-07-04 20:37] LABS: Folic Acid > 20.0 ng/mL (2.76->20)
[2020-07-04] MEDS: DONEPEZIL HCL 10 MG TABLET PO (23:26)
[2020-07-04] MEDS: LORazepam (*CRX) 0.5 MG TABLET PO (23:26)
[2020-07-04 23:56] LABS: Hematocrit 26.3 % (37.0-47.0)
[2020-07-05 04:00] VITALS: BP 108/61; PULSE 75; RESP 20; TEMP 36.9; O2SAT 92
[2020-07-05 05:57] LABS: Basophils Absolute Auto 0.1 K/mm3 (0.0-0.1); Basophils Percent Auto 0.6 % (0.2-1.2); Eosinophils Absolute Auto 0.1 K/mm3 (0-0.3); Hematocrit 26.8 % (37.0-47.0); Hemoglobin 8.2 g/dL (12.0-15.0); Immature Granulocyte Absolute 0.04 K/mm3 (0.00-0.031); Immature Granulocyte Percent A 0.5 % (0-0.5); Lymphocytes Absolute Auto 1.97 K/mm3 (0.9-3.2); Lymphocytes Percent Auto 22.2 % (18.3-44.2); Mean Corpuscular HGB Conc 30.6 g/dl (32-36); Mean Corpuscular Hemoglobin 29.7 pg (26-34); Mean Corpuscular Volume 97.1 fl (80-100); Mean Platelet Volume 9.4 fl (7.4-10.4); Monocytes Absolute Auto 1.1 K/mm3 (0.1-0.6); Monocytes Percent Auto 12.2 % (2.6-8.5); Neutrophils Absolute Auto 5.6 K/mm3 (1.3-6.7); Neutrophils Percent Auto 63.5 % (45.5-73.1); Platelet Count Result 272 k/mm3 (150-375); Red Blood Count 2.76 M/mm3 (4.2-5.4); Red Cell Distribution Width 23.9 % (11.5-14.5); White Blood Count 8.9 K/mm3 (4.5-10.0)
[2020-07-05 06:10] LABS: Alanine Aminotransferase 15 U/L (4-35); Albumin Level 2.8 g/dL (3.5-5.1); Alkaline Phosphatase 57 U/L (38-126); Anion Gap 1 mmol/L (8-16); Aspartate Amino Transferase 33 U/L (14-36); Bilirubin,Total 0.3 mg/dL (0.2-1.3); Blood Urea Nitrogen 18 mg/dL (7-17); Calcium 8.2 mg/dL (8.4-10.2); Carbon Dioxide 29 mmol/L (22-30); Chloride 110 mmol/L (98-107); Estimated CRCL calculation 38 ml/min; Estimated Glomerular Filt Rate > 60; Glucose 87 mg/dL (65-105); Potassium 4.1 mmol/L (3.4-5.0); Sodium 140 mmol/L (137-145)
[2020-07-05] MEDS: LEVOTHYROXINE SODIUM 75 MCG TABLET PO (06:18)
[2020-07-05 08:41] LABS: Free T4 Free Thyroxine Reflex 0.61 ng/dL (0.78-2.19)
[2020-07-05] MEDS: MIRABEGRON 25 MG ER TABLET PO (08:48)
[2020-07-05] MEDS: DIVALPROEX SODIUM 250 MG TAB.ER.24H PO ×2 (08:48→17:29)
[2020-07-05] MEDS: ACETAMINOPHEN 325 MG TABLET 650 MG PO ×3 (08:48→20:00)
[2020-07-05] MEDS: FERROUS SULFATE 324 MG TABLET PO (08:49)
[2020-07-05] MEDS: busPIRone HCL 10 MG TABLET PO ×3 (08:49→17:29)
--- NOTE | 2020-07-05 09:57 | PM.CNOR ---
Assessment and Plan Assessment and plan (1) Closed intertrochanteric fracture of right femur: Qualifiers: Encounter type: initial encounter Fracture alignment: displaced Qualified Code(s): S72.141A - Displaced intertrochanteric fracture of right femur, initial encounter for closed fracture Code(s): S72.141A - Displaced intertrochanteric fracture of right femur, initial encounter for closed fracture Status: Acute Assessment and Plan: New patient evaluation for chief complaint right hip fracture. History, physical exam and radiographs reviewed with the patient. Discussed the condition, nature, etiology and course of natural history with the patient. Treatment options including surgical and nonoperative treatment were reviewed. Risks and benefits of each as well as alternatives reviewed. The patient's questions were answered. Conservative treatment ice And pain control. will discuss with family plans for treatment decision. History of Present Illness HPI Consult date: 07/05/20 Requesting physician: Eric Burciaga PA-C Chief complaint: right hip fracture/dehydration Narrative: 80-year-old woman shelter resident who fell on the right side yesterday. Brought to the emergency room for pain and right hip and inability to bear weight. Radiographs show a right hip fracture. Admitted for further care. Patient complains of minimal right hip pain. There is obvious deformity of the right leg with shortening and rotation. Denies head neck or back injury at the time of fall. Denies any other complaints. Denies numbness or tingling. Difficult to determine but sounds like a minimal ambulator with assistance using a walker. Review of Systems Constitutional: Constitutional: Denies fever(s) Eyes: Eyes: Denies blurry vision ENT: Reports Normal hearing present Cardiovascular: Cardiovascular: Denies chest pain and Denies dyspnea Respiratory: Respiratory: Denies dyspnea and Denies wheezing Gastrointestinal: Gastrointestinal: Denies abdominal pain Genitourinary: Genitourinary: Denies urinary urgency Musculoskeletal: Musculoskeletal: Reports as per HPI and Denies numbness Integumentary/Breasts: Skin/Breast: Denies changing lesions and Denies sores Neurologic: Reports Normal hearing present, Reports confusion, Reports frequent falls, Denies numbness and Denies convulsions Psychiatric: Psychiatric: Denies behavioral changes, Denies confusion and Denies hallucinations Endocrine: Endocrine: Denies heat intolerance Hematologic/Lymphatic: Hematologic/Lymphatic: Denies easy bleeding Allergic/Immunologic: Allergic/Immunologic: Denies wheezing PMFSH Past Medical History Medical History Alzheimer's dementia with behavioral disturbance Anemia Anxiety Chronic obstructive pulmonary disease COVID-19 (~05/2020) Hypothyroidism Rheumatoid arthritis Surgical History Surgical History History of foot surgery Family History Family History Father No problems noted. Mother Parkinson disease Sibling Congestive heart failure Social History Social History Social History: The patient is and is a shelter resident. Former smoker. No alcohol or illicit substance use. Her daughter, Keren is power of deputy commonwealth's attorney. She is listed as a do not resuscitate. Smoking status: Former smoker Tobacco type: cigarettes Second hand tobacco smoke exposure: No Alcohol intake: former Substance use: never Gender identity (if verbalized by the patient): Female Spiritual care concerns: No Meds Home Medications and Allergies Home Medications Medication Instructions Recorded Confirmed Type Myrbetriq 25 mg PO DAILY 05/23/20 07/04/20 History asp
[2020-07-05 10:00] VITALS: BP 113/50; PULSE 86; RESP 16; TEMP 36.9; O2SAT 90
[2020-07-05 14:00] VITALS: BP 105/49; PULSE 62; RESP 16; TEMP 36.9; O2SAT 93
--- NOTE | 2020-07-05 14:06 | PM.IMPN ---
Progress Note: A&P Assessment and Plan (1) Closed intertrochanteric fracture of right femur: Qualifiers: Encounter type: initial encounter Fracture alignment: displaced Qualified Code(s): S72.141A - Displaced intertrochanteric fracture of right femur, initial encounter for closed fracture Code(s): S72.141A - Displaced intertrochanteric fracture of right femur, initial encounter for closed fracture Status: Acute Assessment and Plan: Secondary to unwitnessed fall. X-ray showed comminuted, intertrochanteric right hip fracture. she is endorsing 10/10 right hip pain. Orthopedic surgery has been consulted and input is appreciated. It appears that surgery is being planned for tomorrow. NPO at midnight Analgesics as needed for pain. check vitamin-D (2) Chronic anemia: Code(s): D64.9 - Anemia, unspecified Status: Acute Assessment and Plan: review of prior labs demonstrates chronic anemia. Upon presentation, her hemoglobin is slightly lower than her baseline. she has no signs of active bleeding and vital signs are stable. H&H is remaining stable. Iron panel demonstrates adequate iron stores. B12 and folate wnl. Occult blood has been ordered but not yet collected. Monitor H&H and transfuse as needed with hemoglobin threshold <7.0 (3) Abnormal chest x-ray: Code(s): R93.89 - Abnormal findings on diagnostic imaging of other specified body structures Status: Acute Assessment and Plan: chest x-ray upon presentation showed patchy opacities of the lungs which represent sequela of COVID-19 pneumonia. She did recover from COVID in May 2020 and do not suspect that she has active viral infection. She is maintaining adequate oxygen saturations on room air. (4) Alzheimer's dementia with behavioral disturbance: Code(s): G30.9 - Alzheimer's disease, unspecified; F02.81 - Dementia in other diseases classified elsewhere with behavioral disturbance Status: Acute Assessment and Plan: oriented to self, location, details of hospitalization. Appears she is consistent with her baseline. Continue donepezil (5) Chronic obstructive pulmonary disease: Code(s): J44.9 - Chronic obstructive pulmonary disease, unspecified Status: Inactive Assessment and Plan: does not appear to be in acute exacerbation at this time. No wheezing noted on lung exam. Albuterol available as needed (6) Hypothyroidism: Code(s): E03.9 - Hypothyroidism, unspecified Status: Inactive Assessment and Plan: TSH is elevated at 15 and T4 is low. Will increase her levothyroxine to 88 mcg daily She will benefit from repeat labs in 4-6 weeks Subjective Date/time seen: 07/05/20 14:06 Interval history: Date of service: 07/05/2020 Glo Cruz is an 80-year-old female with history of COPD, hypothyroidism, anemia, rheumatoid arthritis, and Alzheimer's dementia who is seen in follow-up for right hip fracture secondary to fall. She tells me that her right hip pain is 10/10 and has not improved since she has been here despite medications. Nothing helps her pain. otherwise, she has no concerns. She is hungry and would like to eat lunch. She denies nausea, vomiting, fever, chills, dizziness, lightheadedness, weakness, abdominal pain, shortness of breath, cough, chest pain, or palpitations. Review of Systems Review of Systems: All systems reviewed & are unremarkable except as noted in HPI and below Exam Narrative: Exam Narrative: Ms. Cruz is a thin, frail 80-year-old female who is lying supine in bed. she appears comfortable and is in NARD. HR 75, BP 108/61, RR 20, T 98.4?, 92% on room air Neuro: awake, alert and oriented to self, location, and details of hospitalization but could not state the year or the president, speech clear, no focal neuro deficits noted HEENMT: normocephalic, atrau
[2020-07-05 18:00] VITALS: BP 149/67; PULSE 72; RESP 16; TEMP 36.5; O2SAT 95
[2020-07-05] MEDS: polyethylene glycoL 3350 17 GM POWD.PACK PO (18:03)
[2020-07-05] MEDS: DONEPEZIL HCL 10 MG TABLET PO (20:00)
[2020-07-05] MEDS: LORazepam (*CRX) 0.5 MG TABLET PO (20:01)
[2020-07-05 22:00] VITALS: BP 111/44; PULSE 62; RESP 20; TEMP 36.6; O2SAT 99
[2020-07-06] VITALS (21 sets, daily range): BP systolic 93–129; BP diastolic 37–56; PULSE 61–96; RESP 16–20; TEMP 35.8–36.7; O2SAT 93–98
[2020-07-06] MEDS: ACETAMINOPHEN 325 MG TABLET 650 MG PO ×2 (03:52→20:20)
[2020-07-06 05:30] LABS: Hematocrit 27.7 % (37.0-47.0); Hemoglobin 8.6 g/dL (12.0-15.0); Mean Corpuscular Hemoglobin 30.5 pg (26-34); Mean Corpuscular Volume 98.2 fl (80-100); Mean Platelet Volume 9.1 fl (7.4-10.4); Platelet Count Result 245 k/mm3 (150-375); Red Blood Count 2.82 M/mm3 (4.2-5.4); Red Cell Distribution Width 23.5 % (11.5-14.5); White Blood Count 9.4 K/mm3 (4.5-10.0)
[2020-07-06] MEDS: LEVOTHYROXINE SODIUM 88 MCG TABLET PO (05:35)
[2020-07-06 05:40] LABS: Anion Gap 2 mmol/L (8-16); Blood Urea Nitrogen 17 mg/dL (7-17); Calcium 7.8 mg/dL (8.4-10.2); Carbon Dioxide 30 mmol/L (22-30); Chloride 104 mmol/L (98-107); Estimated CRCL calculation 38 ml/min; Estimated Glomerular Filt Rate > 60; Glucose 92 mg/dL (65-105); Potassium 3.9 mmol/L (3.4-5.0); Sodium 136 mmol/L (137-145)
[2020-07-06] MEDS: busPIRone HCL 10 MG TABLET PO ×2 (09:20→18:36)
[2020-07-06] MEDS: DIVALPROEX SODIUM 250 MG TAB.ER.24H PO ×2 (09:20→18:36)
--- NOTE | 2020-07-06 09:50 | WPDANESEPPF ---
Anes - Initial Pre Proc Eval Procedure: Operation Date: 07/06/20 15:00 Proposed Procedures p RIGHT INTERTROCHANTERIC NAIL - Raphael Carreno MD Date/Time: 07/06/20 09:50 Pre Op Diagnosis: right hip fracture/dehydration Patient Data Age: 80 Gender: F Height: 1.52 m Weight: 46.8 kg Last Vital Signs Temp 36.0 C L 07/06/20 06:00 Pulse 64 07/06/20 06:00 Resp 20 07/06/20 06:00 BP 113/53 L 07/06/20 06:00 Pulse Ox 98 07/06/20 06:00 Allergies Allergy/AdvReac Type Severity Reaction Status Date / Time celecoxib [From Celebrex] Allergy Unknown Verified 07/04/20 17:15 ciprofloxacin [From Cipro] Allergy Unknown Verified 07/04/20 17:15 codeine Allergy Unknown Verified 07/04/20 17:15 meperidine Allergy Unknown Verified 07/04/20 17:15 Penicillins Allergy Unknown Verified 07/04/20 17:15 Home Medications Medication Instructions Recorded Confirmed Type Myrbetriq 25 mg PO DAILY 05/23/20 07/04/20 History aspirin 81 mg PO DAILY 05/23/20 07/04/20 History buspirone 10 mg PO TID 05/23/20 07/04/20 History divalproex [Depakote ER] 250 mg PO BID 05/23/20 07/04/20 History donepezil 10 mg PO HS 05/23/20 07/04/20 History levothyroxine 75 mcg PO DAILY 05/23/20 07/04/20 History methotrexate sodium 10 mg PO WEEKLY 05/23/20 07/04/20 History polyethylene glycol 3350 [Miralax] 17 g PO BID PRN 05/23/20 07/04/20 History sennosides-docusate sodium [Senna 1 tab-cap PO TID PRN 05/23/20 07/04/20 History with Docusate Sodium] acetaminophen [Mapap 650 mg PO Q4H PRN #0 tablet 05/24/20 07/04/20 Rx (acetaminophen)] calcium [Calcium Oyster Shell] 1,250 mg PO DAILY 07/04/20 07/04/20 History ferrous sulfate 325 mg PO DAILY 07/04/20 07/04/20 History folic acid 1 mg PO DAILY 07/04/20 07/04/20 History ipratropium-albuterol [Combivent 1 puff INHALATION QID 07/04/20 07/04/20 History Respimat] lorazepam 0.5 mg PO HS 07/04/20 07/04/20 History lorazepam [Ativan] 0.5 mg PO Q6H PRN 07/04/20 07/04/20 History Laboratory Tests 07/06/20 07/06/20 07/06/20 05:12 05:12 05:12 WBC 9.4 K/mm3 K/mm3 (4.5-10.0) RBC 2.82 M/mm3 L M/mm3 (4.2-5.4) Hgb 8.6 g/dL L g/dL (12.0-15.0) Hct 27.7 % L % (37.0-47.0) MCV 98.2 fl fl (80-100) MCH 30.5 pg pg (26-34) MCHC 31.0 g/dl L g/dl (32-36) RDW 23.5 % H % (11.5-14.5) Plt Count 245 k/mm3 k/mm3 (150-375) MPV 9.1 fl fl (7.4-10.4) Sodium 136 mmol/L L mmol/L (137-145) Potassium 3.9 mmol/L mmol/L (3.4-5.0) Chloride 104 mmol/L mmol/L (98-107) Carbon Dioxide 30 mmol/L mmol/L (22-30) Anion Gap 2 mmol/L L mmol/L (8-16) BUN 17 mg/dL mg/dL (7-17) Creatinine 0.70 mg/dL mg/dL (0.7-1.0) Estim Creat Clear Calc 38 ml/min ml/min Estimated GFR > 60 (59 - ) Glucose 92 mg/dL mg/dL (65-105) Calcium 7.8 mg/dL L mg/dL (8.4-10.2) Vitamin D 25-Hydroxy 32.0 ng/mL ng/mL ECG: Date of Service: 07/04/20 Procedure(s): CA 12 lead EKG Accession Number(s): [id number] cc: ~ Measurements Intervals [place] Rate: 59 P: 51 TN: 151 QRS: 34 QRSD: 89 T: -8 QT: 441 QTc: 440 Interpretive Statements SINUS BRADYCARDIA WITH SINUS ARRHYTHMIA CONSIDER INFERIOR INFARCT, AGE INDETERMINATE BASELINE ARTIFACT- I, II, III, AVL, AVF, V1, V4-V6 ABNORMAL ECG Electronically Signed On 07-04-2020 15:51:58 VALET MANAGER by Nishant Montenegro D.O. Dictated By: Nishant Montenegro DO 07/04/20 1035 Patient hx anesthesia problems: none Family hx anesthesia problems: none PMFSH Past Medical History Medical History (Re
--- NOTE | 2020-07-06 10:58 | PM.IMPN ---
Progress Note: A&P Assessment and Plan (1) Closed intertrochanteric fracture of right femur: Qualifiers: Encounter type: initial encounter Fracture alignment: displaced Qualified Code(s): S72.141A - Displaced intertrochanteric fracture of right femur, initial encounter for closed fracture Code(s): S72.141A - Displaced intertrochanteric fracture of right femur, initial encounter for closed fracture Status: Acute Assessment and Plan: Secondary to unwitnessed fall. X-ray showed comminuted, intertrochanteric right hip fracture. she is endorsing 10/10 right hip pain. Vitamin D is sufficient. Calcium sufficient when corrected for hypoalbuminemia. Orthopedic surgery has been consulted and input is appreciated. Planning for surgical repair today. Further care including DVT ppx, weight-bearing status post-operatively per Ortho. Analgesics as needed for pain. Continue carrillo catheter (2) Chronic anemia: Code(s): D64.9 - Anemia, unspecified Status: Acute Assessment and Plan: review of prior labs demonstrates chronic anemia. Upon presentation, her hemoglobin is slightly lower than her baseline. she has no signs of active bleeding and vital signs are stable. H&H is remaining stable. Iron panel demonstrates adequate iron stores. B12 and folate wnl. Stool occult blood test has been ordered but not yet collected as patient has not had BM. Will add Miralax and colace, especially in light of opioid analgesics Monitor H&H and transfuse as needed with hemoglobin threshold <7.0 (3) Abnormal chest x-ray: Code(s): R93.89 - Abnormal findings on diagnostic imaging of other specified body structures Status: Acute Assessment and Plan: Chest x-ray upon presentation showed patchy opacities of the lungs which represent sequela of COVID-19 pneumonia. She did recover from COVID in May 2020. At this time, do not have concerns for acute infection. She is maintaining adequate oxygen saturations on room air. (4) Alzheimer's dementia with behavioral disturbance: Code(s): G30.9 - Alzheimer's disease, unspecified; F02.81 - Dementia in other diseases classified elsewhere with behavioral disturbance Status: Acute Assessment and Plan: oriented to self, location, details of hospitalization. Appears she is consistent with her baseline. Continue donepezil (5) Chronic obstructive pulmonary disease: Code(s): J44.9 - Chronic obstructive pulmonary disease, unspecified Status: Inactive Assessment and Plan: does not appear to be in acute exacerbation at this time. No wheezing noted on lung exam. Albuterol available as needed (6) Hypothyroidism: Code(s): E03.9 - Hypothyroidism, unspecified Status: Inactive Assessment and Plan: TSH is elevated at 15 and T4 is low. Levothyroxine increased to 88 mcg daily She will benefit from repeat labs in 4-6 weeks Subjective Date/time seen: 07/06/20 10:58 Interval history: Date of service: 07/06/2020 Glo Cruz is an 80-year-old female with history of COPD, hypothyroidism, anemia, rheumatoid arthritis, and Alzheimer's dementia who is seen in follow-up for right hip fracture secondary to fall. She is a poor historian given her dementia, but is aware that she broke her hip and will be getting surgery. Currently, she was reporting 10/10 hip pain. She points to her right hip but states that it is her left hip that is hurting. She has been NPO for surgery. She denies abdominal pain, nausea, vomiting, fever, chills, dizziness, lightheadedness, chest pain, palpitations, cough, or shortness of breath. She has a Carrillo catheter that does not seem to be causing her any issues. Review of Systems Review of Systems: All systems reviewed & are unremarkable except as noted in HPI and below Exam Narrative: Exam Narrative: Ms. Cruz is a thin, frail 80-
--- NOTE | 2020-07-06 11:18 | P.HPUP_ITS ---
History and Physical Update Update Date/Time: 07/06/20 11:18 History and Physical has been reviewed, including an updated exam of the patient. There are NO changes in the patient's condition. discussed treatment options for right hip fracture with the patient and her daughter. Risks, benefits, and alternatives have been discussed and questions answered. family and power of senior trial attorney desire operative treatment. Patient agrees to proceed with procedure. Discussed reduction of right hip fracture in closed versus possible open fashion with internal fixation utilizing trochanteric intramedullary nail with hip screw. Questions about surgery answered in detail. Family and patient verbalized agreement and wished to proceed with operative treatment. Plan: Right hip intertrochanteric fracture reduction with intramedullary fixation.
--- NOTE | 2020-07-06 12:47 | PC.NURSE ---
Report called to Jordana Salgado.
--- NOTE | 2020-07-06 13:53 | PC.NURSE ---
To OR via bed.
[2020-07-06] MEDS: LACTATED RINGERS 1,000 ML 30 ML IV CONT (14:05)
[2020-07-06] MEDS: TRANEXAMIC ACID 1,000MG/ISO100 1,000 MG/100 ML BAG 200 MG IVPB (14:32)
[2020-07-06] MEDS: BUPIVACAINE/EPINEPHRINE 0.5% 10 ML VIAL 20 ML INFILTRATE (15:52)
--- NOTE | 2020-07-06 16:14 | PM.PROC ---
Procedure Note - Detailed Date of procedure: 07/06/20 Pre-op diagnosis: right hip fracture/dehydration Post-op diagnosis: same (Closed right hip intertrochanteric fracture with displacement and comminution) Procedure performed: Intramedullary hip screw right intertrochanteric fracture Description of procedure: Implants used: Janes natural nail 125 degree angle 11.5 millimeter diameter 36 centimeter length nail, lag screw 10.5 millimeter x 90 millimeter length. INDICATIONS: This is an 80-year-old woman who fell sustaining a right hip intertrochanteric femur fracture. Indicated for reduction and intramedullary hip screw fixation, right hip. DESCRIPTION OF PROCEDURE: After informed consent the operative extremity was marked in the preoperative holding area. Patient received intravenous antibiotics. The patient was taken to the operative room, placed in the supine position, general anesthesia induced by the anesthesia team, and was placed on a fracture table with longitudinal traction applied to the right leg. The non operative leg was extended out of the field. The hip fracture was reduced to near anatomic position and verified with image intensification. A time-out was performed confirming the patient, site of the surgery and plan. The right lower extremity was prepped and draped sterilely from the knee to the iliac crest region using a ChloraPrep skin solution. Incision was made just proximal to greater trochanter down to the subcutaneous tissues. Hemostasis controlled with electrocautery. Blunt dissection through the fascia to the tip of the greater trochanter. A starter awl was placed at the tip of the greater trochanter into the medullary canal of the femur. This was checked with image intensification and was in good position. Intramedullary guide abel positioned. A one-step hand reaming done proximally. Intramedullary canal was reamed with a 12.5 millimeter flexible reamer. Measuring was then performed off of the guide abel. Neck angle selected off of preoperative radiographs temp plating. 125 degree 11.5 X 360mm Nail opened on the back table and assembled. This was then inserted over the guide abel to the correct depth. Guide abel removed. Lag screw was then placed with a stab incision over the lateral femur using a 10 blade knife. Blunt dissection down to the lateral side of the bone. Soft tissue protectors placed. Guide pin placed in the center center position of the femoral head and measured. 0 millimeter x 10.5 millimeter lag screw placed to correct depth and verified with image intensification. Traction then released from the leg and compression of the fracture performed with the external compression device. Proximal locking screw placed. Distal locking of the nail not indicated. Final image intensification confirm reduction of the fracture and placement of the hardware. Wounds then thoroughly irrigated with antibiotic solution. Fascia repaired with 0 Vicryl interrupted suture. Subcutaneous tissue repaired with 2 O Vicryl in a procedure and skin repaired with 4 O monocryl and glue. Sterile dressings applied. Patient then awoke from anesthesia, extubated taken to recovery room stable condition. All sponge, needle and instrument counts correct at the end the case. Implants: Biomet 11.5 mm diameter by 360 mm length by 125 degree nail with 90 mm lag screw Anesthesia: GLMA Surgeon: Raphael Carreno MD Compressor Stations Superintendent: 1st recruiting assistant Estimated blood loss (mL): 100 Tourniquet time (min): 0 Drains: No Packing: No Pathology: none sent Complications: None Condition: stable Disposition: PACU
--- NOTE | 2020-07-06 17:55 | PC.NURSE ---
Returned from OR via bed. Snider draining dark yellow urine.
[2020-07-06] MEDS: KCL 20 MEQ/D5/0.45% SOD CHL 1,000 ML 80 ML IV CONT (18:34)
[2020-07-06] MEDS: DONEPEZIL HCL 10 MG TABLET PO (20:16)
[2020-07-06] MEDS: DOCUSATE SODIUM 100 MG CAPSULE PO (20:16)
[2020-07-06] MEDS: ASPIRIN 325 MG ENTERIC TABLET PO (21:00)
[2020-07-07] VITALS (8 sets, daily range): BP systolic 96–118; BP diastolic 40–68; PULSE 54–90; RESP 18; TEMP 35.9–36.7; O2SAT 90–97
[2020-07-07 05:40] LABS: Hematocrit 23.1 % (37.0-47.0); Hemoglobin 7.1 g/dL (12.0-15.0); Mean Corpuscular HGB Conc 30.7 g/dl (32-36); Mean Corpuscular Hemoglobin 30.3 pg (26-34); Mean Corpuscular Volume 98.7 fl (80-100); Mean Platelet Volume 9.2 fl (7.4-10.4); Platelet Count Result 222 k/mm3 (150-375); Red Blood Count 2.34 M/mm3 (4.2-5.4); Red Cell Distribution Width 22.4 % (11.5-14.5); White Blood Count 9.7 K/mm3 (4.5-10.0)
[2020-07-07 05:53] LABS: Anion Gap 1 mmol/L (8-16); Blood Urea Nitrogen 13 mg/dL (7-17); Calcium 6.9 mg/dL (8.4-10.2); Carbon Dioxide 28 mmol/L (22-30); Chloride 101 mmol/L (98-107); Estimated CRCL calculation 44 ml/min; Estimated Glomerular Filt Rate > 60; Glucose 152 mg/dL (65-105); Potassium 4.6 mmol/L (3.4-5.0); Sodium 130 mmol/L (137-145)
[2020-07-07] MEDS: IBUPROFEN IV 400 MG in SODIUM CHLORIDE 0.9% IV 100 ML 200 MG IVPB (06:48)
[2020-07-07] MEDS: LEVOTHYROXINE SODIUM 88 MCG TABLET PO (06:48)
--- NOTE | 2020-07-07 07:15 | WPDANESPN ---
Anes - Prog Note Post-Op Date/Time: 07/07/20 07:15 Cardiovascular status: normal Respiratory status: normal Airway patency: baseline Mental status: baseline Post-Op hydration status: normal Vital Signs: Last Vital Signs Temp 97.0 F L 07/07/20 06:00 Pulse 70 07/07/20 06:00 Resp 18 07/07/20 06:00 BP 100/53 L 07/07/20 06:00 Pulse Ox 96 07/07/20 06:00 Pain Score (VAS): 06/21 I/O: Intake & Output 07/06/20 07/06/20 07/07/20 15:59 23:59 07:59 Intake Total 350 120 560 Output Total 200 650 Balance 150 120 -90 Laboratory Tests 07/07/20 05:16 07/07/20 05:16 07/07/20 07/07/20 05:16 05:16 WBC 9.7 RBC 2.34 L Hgb 7.1 L Hct 23.1 L MCV 98.7 MCH 30.3 MCHC 30.7 L RDW 22.4 H Plt Count 222 MPV 9.2 Sodium 130 L Potassium 4.6 Chloride 101 Carbon Dioxide 28 Anion Gap 1 L BUN 13 Creatinine 0.60 L Estim Creat Clear Calc 44 Estimated GFR > 60 Glucose 152 H Calcium 6.9 L Post-procedural complaints: none Patient Feedback: Patient satisfied with anesthetic care.
[2020-07-07] MEDS: FERROUS SULFATE 324 MG TABLET PO (09:02)
[2020-07-07] MEDS: DIVALPROEX SODIUM 250 MG TAB.ER.24H PO ×2 (09:02→16:44)
[2020-07-07] MEDS: busPIRone HCL 10 MG TABLET PO ×3 (09:03→16:44)
[2020-07-07] MEDS: ASPIRIN 325 MG ENTERIC TABLET PO ×2 (09:03→20:32)
[2020-07-07] MEDS: DOCUSATE SODIUM 100 MG CAPSULE PO ×2 (09:04→20:32)
[2020-07-07] MEDS: CALCIUM CARBONATE (OSCAL) 500 MG TABLET PO (09:04)
[2020-07-07] MEDS: MIRABEGRON 25 MG ER TABLET PO (09:05)
[2020-07-07] MEDS: FOLIC ACID 1 MG TABLET PO (09:05)
[2020-07-07] MEDS: polyethylene glycoL 3350 17 GM POWD.PACK PO (09:05)
[2020-07-07] MEDS: ACETAMINOPHEN 325 MG TABLET 650 MG PO (10:30)
--- NOTE | 2020-07-07 11:12 | PM.IMPN ---
Progress Note: A&P Assessment and Plan (1) Closed intertrochanteric fracture of right femur: Qualifiers: Encounter type: initial encounter Fracture alignment: displaced Qualified Code(s): S72.141A - Displaced intertrochanteric fracture of right femur, initial encounter for closed fracture Code(s): S72.141A - Displaced intertrochanteric fracture of right femur, initial encounter for closed fracture Status: Acute Assessment and Plan: Secondary to unwitnessed fall. X-ray showed comminuted, intertrochanteric right hip fracture. Vitamin D is sufficient. Calcium sufficient when corrected for hypoalbuminemia. She is s/p intramedullary hip screw right intertrochanteric fracture by Dr. Carreno 07/06/20. She tolerated the procedure well. Orthopedic surgery has been consulted and input is appreciated DVT ppx, weight-bearing status will be deferred to orthopedic surgery Continue analgesics as needed for pain Recommend carrillo catheter removal and voiding trial once recommended per orthopedic surgery (2) Acute respiratory failure with hypoxia: Code(s): J96.01 - Acute respiratory failure with hypoxia Status: Acute Assessment and Plan: Chest x-ray upon presentation showed patchy opacities of the lungs which represent sequela of COVID-19 pneumonia. She did recover from COVID in May 2020. She was placed on oxygen post-operatively and has rales at the bases on exam today. She was weaned from 2 liters to 1 liter and remains on 1 liter at 96%. She has no wheezing to suggest COPD exacerbation and I do not suspect pneumonia clinically. Give 1 dose of 20mg IV lasix now Repeat CXR for tomorrow Continue supplemental oxygen as needed to maintain oxygen saturation >90%, wean as tolerated (3) Chronic anemia: Code(s): D64.9 - Anemia, unspecified Status: Acute Assessment and Plan: Review of prior labs demonstrates chronic anemia. Upon presentation, her hemoglobin is slightly lower than her baseline. She has no signs of active bleeding and vital signs are stable. H&H with slight decline today to 7.1 post-operatively. Iron panel demonstrates adequate iron stores. B12 and folate wnl. Stool occult blood test has been ordered but not yet collected as patient has not had BM. Will add Miralax and colace, especially in light of opioid analgesics Monitor H&H and transfuse as needed with hemoglobin threshold <7.0 Repeat hemoglobin and hematocrit 6 hr from prior lab for close monitoring (4) Alzheimer's dementia with behavioral disturbance: Code(s): G30.9 - Alzheimer's disease, unspecified; F02.81 - Dementia in other diseases classified elsewhere with behavioral disturbance Status: Acute Assessment and Plan: Oriented to self, location, details of hospitalization. Appears she is consistent with her baseline. Continue donepezil (5) Chronic obstructive pulmonary disease: Code(s): J44.9 - Chronic obstructive pulmonary disease, unspecified Status: Inactive Assessment and Plan: Does not appear to be in acute exacerbation at this time. She does not have any wheezing on exam. Albuterol available as needed (6) Hypothyroidism: Code(s): E03.9 - Hypothyroidism, unspecified Status: Inactive Assessment and Plan: TSH is elevated at 15 and T4 is low. Levothyroxine increased to 88 mcg daily She will benefit from repeat thyroid function labs in 4-6 weeks Subjective Date/time seen: 07/07/20 11:12 Interval history: Mrs. Cruz is an 80 y.o. female with PMH significant for COPD, hypothyroidism, anemia, rheumatoid arthritis, and Alzheimer's dementia who is seen in follow-up for right hip fracture secondary to fall s/p intramedullary hip screw by Dr. Carreno 07/06/20. The patient is a poor historian due to underlying Alzheimer's dementia. She reports right hip pain and rates this at 10/10 but she i
[2020-07-07 11:25] LABS: Hematocrit 24.8 % (37.0-47.0); Hemoglobin 7.4 g/dL (12.0-15.0)
[2020-07-07] MEDS: FUROSEMIDE INJ 40 MG/4 ML VIAL 20 MG IV PUSH (12:39)
[2020-07-07] MEDS: PANTOPRAZOLE 40 MG TABLET PO (12:40)
--- NOTE | 2020-07-07 13:11 | PM.PNORT ---
Progress Note: A&P Assessment and Plan (1) Closed intertrochanteric fracture of right femur: Qualifiers: Encounter type: initial encounter Fracture alignment: displaced Qualified Code(s): S72.141A - Displaced intertrochanteric fracture of right femur, initial encounter for closed fracture Code(s): S72.141A - Displaced intertrochanteric fracture of right femur, initial encounter for closed fracture Status: Acute Assessment and Plan: POD #1: Intramedullary hip screw right intertrochanteric fracture Continue PT/OT. Walker. High fall risk. WBAT Continue pain control, limit narcotics. Ice lateral hip. Change dressing daily beginning tomorrow, nursing aware. D/C carrillo catheter. Reviewed incentive spirometry use. SCDs. DVT prophylaxis with Aspirin. Dispo: SNF vs Acute Rehab when medically stable. Subjective Subjective Date/Time Seen: 07/07/20 0830 POD #1: Intramedullary hip screw right intertrochanteric fracture Pain controlled. Sitting up in the chair eating breakfast. No new complaints. Somewhat confused to time. Review of Systems Constitutional: Constitutional: Denies fever(s) Eyes: Eyes: Denies blurry vision ENT: Reports Normal hearing present Cardiovascular: Cardiovascular: Denies chest pain and Denies dyspnea Respiratory: Respiratory: Denies dyspnea and Denies wheezing Gastrointestinal: Gastrointestinal: Denies abdominal pain Genitourinary: Genitourinary: Denies urinary urgency Musculoskeletal: Musculoskeletal: Reports as per HPI and Denies numbness Integumentary/Breasts: Skin/Breast: Denies changing lesions and Denies sores Neurologic: Reports Normal hearing present, Reports confusion, Reports frequent falls, Denies numbness and Denies convulsions Psychiatric: Psychiatric: Denies behavioral changes, Denies confusion and Denies hallucinations Endocrine: Endocrine: Denies heat intolerance Hematologic/Lymphatic: Hematologic/Lymphatic: Denies easy bleeding Allergic/Immunologic: Allergic/Immunologic: Denies wheezing Exam Const: General: comfortable and no acute distress Resp: Effort & Inspection: normal respiratory effort Cardio: Rate: regular rate Rhythm: regular rhythm GI: Inspection: non-distended GI Palp: Yes Soft to palpation and No Tenderness to palpation present (GI) : Other: Urine clear Urinary Catheter: Urinary Catheter: patent and draining and urine clear Neuro: General: No gait normal (antalgic, limited, requiring assistance ) Cognition (Neuro): normal cognition Motor exam (neuro): strength not 5/5 throughout (weakness RLE ) and Abnormal motor strength present (decreased RLE ) Sensory Exam: normal sensation Extrem: Right lower extremity: hip/thigh (Right lateral hip incision c/d/i. ) Details: tenderness Location: of the hip Location: laterally, abnormal ROM (limited due to recent surgical intervention ) and other (Thigh soft/nontender. ); no deformity and no unusual warmth, lower leg (Negative Niko's Sign ) and foot Details: normal capillary refill, no edema, vascular exam Details: dorsalis pedis pulse present and posterior tibial pulse present, tendon exam Details: active flexion normal Location: of all toes and active extension normal Location: of all toes and motor-sensory exam Details: two point discrimination normal and light-touch normal Left lower extremity: normal to inspection, full ROM, normal capillary refill and hip/thigh Details: normal to inspection and normal ROM; no tenderness and no swelling Psych: Mental Status: mental status grossly normal Affect: normal affect Objective Data Vital Signs Vital Signs: Vital Signs - 24 hr 07/06/20 14:03 07/06/20 16:20 07/06/20 16:35 Temperature 36.3 C L 36.6 C Pulse Rate 61 94 96 Respiratory Rate 20 20 20 Blood Pressure 101/46 L 129/54 L 103/37 L Pulse Oximetry 96 98 97 07/06/20 16:50 07/06/20 17:05 07/06/20 17:20 Temperature Pulse Rate 82 86 76 Respiratory Rate 20 20 18
--- NOTE | 2020-07-07 15:31 | PC.NURSE ---
On 07/07/20, the student, [HOOD GRIDER], provided care and completed [facility] documentation on this patient. I have reviewed the student's documentation and agree with the findings.
[2020-07-07 18:06] LABS: Hematocrit 28.8 % (37.0-47.0); Hemoglobin 8.8 g/dL (12.0-15.0)
[2020-07-07] MEDS: DONEPEZIL HCL 10 MG TABLET PO (20:32)
[2020-07-08] VITALS (12 sets, daily range): BP systolic 82–110; BP diastolic 40–58; PULSE 68–104; RESP 18–21; TEMP 36.3–37.1; O2SAT 90–100
--- NOTE | 2020-07-08 | ECHO_ITS ---
Patient Info Name: Glo Cruz Age: 80 years : 1940 Gender: Female Ht: 60 in Wt: 103 lbs BSA: 1.41 m2 HR: 78 bpm BP: 100 / 58 mmHg Technical Quality: Good Exam Date: 07/08/2020 1:53 PM Exam Location: [facility] Pulmonary Exam Room: [facility] Patient Status: Inpatient Admit Date: 07/05/2020 Staff Ordering Physician: Ruma Hernandes PA-C Release Manager: Asia Callejas RDCS Attending Provider: Ruma Hernandes PA-C Referring Physician: Cecilio VIZCARRA; Exam Type: CA echo doppler color flow Study Info Complete two-dimensional, color flow and Doppler transthoracic echocardiogram is performed. Summary 1. Complete two-dimensional, color flow and Doppler transthoracic echocardiogram is performed. 2. Left ventricular chamber dimension is normal. 3. Left ventricular systolic function is normal, estimated at 60-65%. 4. There is mildly increased left ventricular wall thickness. 5. The left ventricular diastolic function is grade I diastolic dysfunction. 6. Left atrial chamber dimension is mildly enlarged. 7. Atrial septal aneurysm without shunting by color doppler. 8. There is mild aortic valve sclerosis. 9. No pulmonary hypertension, estimated pulmonary arterial systolic pressure is 33 mmHg. 10. There is trace pulmonic regurgitation. Left Ventricle Tissue doppler is not performed. Left ventricular chamber dimension is normal. Left ventricular systolic function is normal, estimated at 60-65%. There is mildly increased left ventricular wall thickness. The left ventricular diastolic function is grade I diastolic dysfunction. Right Ventricle Right ventricular chamber dimension is normal. Right ventricular systolic function is normal. Left Atria Left atrial chamber dimension is mildly enlarged. Right Atria Right atrial chamber dimension is normal. Atrial Septum Atrial septal aneurysm without shunting by color doppler. Aortic Valve The aortic valve is trileaflet. There is mild aortic valve sclerosis. There is no aortic valve stenosis. There is no aortic valve regurgitation. Pulmonic Valve There is trace pulmonic regurgitation. Mitral Valve There is no mitral valve stenosis. There is no mitral valve regurgitation. Tricuspid Valve There is no tricuspid valve regurgitation. No pulmonary hypertension, estimated pulmonary arterial systolic pressure is 33 mmHg. Pericardium/Pleural There is no pericardial effusion. Inferior Vena Cava Normal inferior vena cava with >50% collapse upon inspiration consistent with normal right atrial pressure, 5 mmHg. Aorta The aortic root size at the sinus of Valsalva is normal. Left Ventricular Outflow Tract Name Value Normal LVOT 2D LVOT Diameter 2.0 cm LVOT Doppler LVOT Peak Gradient 4 mmHg LVOT Mean Gradient 2 mmHg LVOT VTI 20 cm LVOT VTI/AV VTI Ratio 0.8 LVOT Stroke Volume 63 ml LVOT CO 13.3 l/min LVOT CI 9.5
[2020-07-08 01:52] LABS: Hematocrit 22.8 % (37.0-47.0); Hemoglobin 7.1 g/dL (12.0-15.0)
[2020-07-08] MEDS: LORazepam (*CRX) 0.5 MG TABLET PO ×2 (03:26→20:15)
[2020-07-08 05:42] LABS: Basophils Absolute Auto 0.1 K/mm3 (0.0-0.1); Basophils Percent Auto 0.5 % (0.2-1.2); Eosinophils Absolute Auto 0.3 K/mm3 (0-0.3); Eosinophils Percent Auto 3.1 % (0-4.4); Hematocrit 23.5 % (37.0-47.0); Hemoglobin 7.1 g/dL (12.0-15.0); Immature Granulocyte Absolute 0.06 K/mm3 (0.00-0.031); Immature Granulocyte Percent A 0.6 % (0-0.5); Lymphocytes Absolute Auto 1.24 K/mm3 (0.9-3.2); Lymphocytes Percent Auto 13.3 % (18.3-44.2); Mean Corpuscular HGB Conc 30.2 g/dl (32-36); Mean Corpuscular Hemoglobin 30.7 pg (26-34); Mean Corpuscular Volume 101.7 fl (80-100); Mean Platelet Volume 9.2 fl (7.4-10.4); Monocytes Absolute Auto 0.6 K/mm3 (0.1-0.6); Monocytes Percent Auto 6.6 % (2.6-8.5); Neutrophils Absolute Auto 7.1 K/mm3 (1.3-6.7); Neutrophils Percent Auto 75.9 % (45.5-73.1); Platelet Count Result 241 k/mm3 (150-375); Red Blood Count 2.31 M/mm3 (4.2-5.4); Red Cell Distribution Width 22.5 % (11.5-14.5); White Blood Count 9.3 K/mm3 (4.5-10.0)
[2020-07-08 06:03] LABS: Anion Gap -1 mmol/L (8-16); Blood Urea Nitrogen 21 mg/dL (7-17); Calcium 7.4 mg/dL (8.4-10.2); Carbon Dioxide 32 mmol/L (22-30); Chloride 101 mmol/L (98-107); Estimated CRCL calculation 34 ml/min; Estimated Glomerular Filt Rate > 60; Glucose 82 mg/dL (65-105); Magnesium 1.9 mg/dL (1.6-2.3); Potassium 4.5 mmol/L (3.4-5.0); Sodium 132 mmol/L (137-145)
[2020-07-08 06:11] LABS: IFOB Positive Control Positive; Immunochemical Fecal Occult Bl Positive (N)
[2020-07-08] MEDS: LEVOTHYROXINE SODIUM 88 MCG TABLET PO (06:42)
[2020-07-08] MEDS: busPIRone HCL 10 MG TABLET PO ×3 (09:20→16:48)
[2020-07-08] MEDS: DIVALPROEX SODIUM 250 MG TAB.ER.24H PO ×2 (09:20→16:48)
[2020-07-08] MEDS: FERROUS SULFATE 324 MG TABLET PO (09:20)
[2020-07-08] MEDS: polyethylene glycoL 3350 17 GM POWD.PACK PO (09:20)
[2020-07-08] MEDS: PANTOPRAZOLE 40 MG TABLET PO (09:20)
[2020-07-08] MEDS: DOCUSATE SODIUM 100 MG CAPSULE PO ×2 (09:20→20:15)
[2020-07-08] MEDS: MIRABEGRON 25 MG ER TABLET PO (09:20)
[2020-07-08] MEDS: FOLIC ACID 1 MG TABLET PO (09:20)
[2020-07-08] MEDS: SODIUM CHLORIDE 0.9% IV 250 ML 30 ML IV CONT (10:01)
[2020-07-08] MEDS: CALCIUM CARBONATE (OSCAL) 500 MG TABLET PO (10:01)
--- NOTE | 2020-07-08 10:04 | PM.IMPN ---
Progress Note: A&P Assessment and Plan (1) Closed intertrochanteric fracture of right femur: Qualifiers: Encounter type: initial encounter Fracture alignment: displaced Qualified Code(s): S72.141A - Displaced intertrochanteric fracture of right femur, initial encounter for closed fracture Code(s): S72.141A - Displaced intertrochanteric fracture of right femur, initial encounter for closed fracture Status: Acute Assessment and Plan: Secondary to unwitnessed fall. X-ray showed comminuted, intertrochanteric right hip fracture. Vitamin D is sufficient. Calcium sufficient when corrected for hypoalbuminemia. She is s/p intramedullary hip screw right intertrochanteric fracture by Dr. Carreno 07/06/20. She tolerated the procedure well and amblated with PT today. Snider catheter was removed and she is voiding without difficulty. Orthopedic surgery has been consulted and input is appreciated DVT ppx, weight-bearing status will be deferred to orthopedic surgery - discussed with Dr. Carreno and will stop ASA given hemoccult positive stool and start lovenox. Continue analgesics as needed for pain (2) Acute respiratory failure with hypoxia: Code(s): J96.01 - Acute respiratory failure with hypoxia Status: Acute Assessment and Plan: Chest x-ray upon presentation showed patchy opacities of the lungs which represent sequela of COVID-19 pneumonia. It also appears that she has a component of chronic restrictive lung disease. She did recover from COVID in May 2020. She was placed on oxygen post-operatively and remains on 2 liters today. She has no wheezing to suggest COPD exacerbation but generally takes her combivent QID which will be resumed. She received 20mg IV lasix yesterday with good urine output. Repeat CXR demonstrates pneumonia vs pulmonary edema. Clinically, she is afebrile with normal WBC so pneumonia is felt less likely. She is anemic so she will be transfused 1 unit pRBC. Give 1 additional dose of 20mg IV lasix now Check echocardiogram Consider further imaging and pulmonology consult if she does not improve Continue supplemental oxygen as needed to maintain oxygen saturation >90%, wean as tolerated (3) Chronic anemia: Code(s): D64.9 - Anemia, unspecified Status: Acute Assessment and Plan: Review of prior labs demonstrates chronic anemia. Upon presentation, her hemoglobin is slightly lower than her baseline. She has no evidence of overt blood loss. Iron panel demonstrates adequate iron stores. B12 and folate wnl. Hemoglobin is 7.1 and she is requiring oxygen. Hemoccult testing is positive. Consult GI for positive hemoccult testing Transfuse 1 unit pRBC given anemia and hypoxia. Repeat H&H 1 hour after transfusion is complete. Monitor H&H and transfuse as needed with hemoglobin threshold <7.0 (4) Alzheimer's dementia with behavioral disturbance: Code(s): G30.9 - Alzheimer's disease, unspecified; F02.81 - Dementia in other diseases classified elsewhere with behavioral disturbance Status: Acute Assessment and Plan: Oriented to self, location, details of hospitalization. Appears she is consistent with her baseline. Continue donepezil (5) Chronic obstructive pulmonary disease: Code(s): J44.9 - Chronic obstructive pulmonary disease, unspecified Status: Inactive Assessment and Plan: Does not appear to be in acute exacerbation at this time. She does not have any wheezing on exam. She takes combivent QID at home so I will resume scheduled albuterol-ipratropium while inpatient (6) Hypothyroidism: Code(s): E03.9 - Hypothyroidism, unspecified Status: Inactive Assessment and Plan: TSH is elevated at 15 and T4 is low. Levothyroxine increased to 88 mcg daily She will benefit from repeat thyroid function labs in 4-6 weeks (7) Occult blood positive stool: Code(s):
[2020-07-08] MEDS: FUROSEMIDE INJ 40 MG/4 ML VIAL 20 MG IV PUSH (11:10)
--- NOTE | 2020-07-08 11:18 | PCOTNOTE ---
Attempted to see patient this am, however patient unavailable with nursing at this time. Pt receiving blood and presenting with decreased O2 sats. Respiratory therapy present with patient for blood gas.
[2020-07-08 11:26] LABS: Alveolar/Arterial O2 Gradient 92.5 mmHg; Base Excess ABG 1.5 mEq/l (+/-2.0); Carboxyhemoglobin 0.5 % THb (0-2.0); Fractional Inspired Oxygen 28 %; HCO3 ABG 25.4 mEq/l (22.0-26.0); Methemoglobin ABG 0.3 %THb (0-1.5); Oxygen Content ABG 9.9 %vol (16.0-22.0); Oxygen Saturation ABG 93.4 % (95.0-100.0); Oxyhemoglobin 90.4 % THb (90.0-100.0); PO2 ABG 63.5 mmHg (80.0-100.0); PO2 FiO2 Ratio Arterial Blood 2.27 %; Reduced Hemoglobin 8.8 %THb (0-5.0); pH ABG 7.455 (7.350-7.450)
--- NOTE | 2020-07-08 11:27 | ECG_ITS ---
Measurements Intervals [place] Rate: 59 P: 43 NM: 161 QRS: 17 QRSD: 84 T: 31 QT: 372 QTc: 370 Interpretive Statements SINUS BRADYCARDIA DELAYED PRECORDIAL R/S TRANSITION BASELINE ARTIFACT- I, II, AVR, V1 BORDERLINE ECG Electronically Signed On 07-08-2020 11:56:51 [employer] by Nishant Montenegro D.O.
[2020-07-08 11:28] LABS: Device NASAL CANNULA; Site Drawn LEFT BRACHIAL; Total Hemoglobin 7.7 g/dL (12.0-18.0)
--- NOTE | 2020-07-08 12:13 | PC.NURSE ---
Patient to CT per bed at 1213. Blood vitals will resume once patient is back to their room. Zack DUFFY to transport patient with blood.
--- NOTE | 2020-07-08 12:14 | PM.PNORT ---
Progress Note: A&P Assessment and Plan (1) Closed intertrochanteric fracture of right femur: Qualifiers: Encounter type: subsequent encounter Fracture alignment: displaced Fracture healing: with routine healing Qualified Code(s): S72.141D - Displaced intertrochanteric fracture of right femur, subsequent encounter for closed fracture with routine healing Code(s): S72.141A - Displaced intertrochanteric fracture of right femur, initial encounter for closed fracture Status: Acute Assessment and Plan: POD #2: Intramedullary hip screw right intertrochanteric fracture Continue PT/OT. Walker. High fall risk. WBAT Continue pain control, limit narcotics. Ice lateral hip. Change dressing daily beginning tomorrow, nursing aware. DVT prophylaxis per hospitalist. Dispo: SNF vs Acute Rehab when medically stable. Subjective Subjective Date/Time Seen: 07/08/20 12:14 Patient awake and alert. Complains of right hip and leg pain. Denies shortness of breath. Exam Const: General: comfortable and no acute distress Resp: Effort & Inspection: normal respiratory effort Cardio: Rate: regular rate Rhythm: regular rhythm GI: Inspection: non-distended GI Palp: Yes Soft to palpation and No Tenderness to palpation present (GI) : Other: Urine clear Neuro: General: No gait normal (antalgic, limited, requiring assistance ) Cognition (Neuro): normal cognition Motor exam (neuro): strength not 5/5 throughout (weakness RLE ) and Abnormal motor strength present (decreased RLE ) Sensory Exam: normal sensation Extrem: Right lower extremity: hip/thigh (Right lateral hip incision c/d/i. ) Details: tenderness Location: of the hip Location: laterally, abnormal ROM (limited due to recent surgical intervention ) and other (Thigh soft/nontender. ); no deformity and no unusual warmth, lower leg (Negative Niko's Sign ) and foot Details: normal capillary refill, no edema, vascular exam Details: dorsalis pedis pulse present and posterior tibial pulse present, tendon exam Details: active flexion normal Location: of all toes and active extension normal Location: of all toes and motor-sensory exam Details: two point discrimination normal and light-touch normal Left lower extremity: normal to inspection, full ROM, normal capillary refill and hip/thigh Details: normal to inspection and normal ROM; no tenderness and no swelling Psych: Mental Status: mental status grossly normal Affect: normal affect Objective Data Vital Signs Vital Signs: Vital Signs - 24 hr 07/07/20 12:20 07/07/20 14:20 07/07/20 20:00 Temperature 97.6 F 96.7 F L Pulse Rate 64 62 Respiratory Rate 18 18 Blood Pressure 98/40 L 96/68 L Pulse Oximetry 94 93 90 07/07/20 22:00 07/07/20 23:48 07/08/20 06:00 Temperature 97.6 F 98.1 F 97.8 F Pulse Rate 90 54 L 90 Respiratory Rate 18 18 18 Blood Pressure 113/49 L 118/51 L 104/48 L Pulse Oximetry 96 97 96 07/08/20 09:10 07/08/20 10:00 07/08/20 10:49 Temperature 97.9 F Pulse Rate 104 H Respiratory Rate 18 Blood Pressure 100/58 L Pulse Oximetry 90 90 92 07/08/20 11:03 07/08/20 11:18 Temperature 97.7 F 97.3 F L Pulse Rate 104 H 82 Respiratory Rate 18 20 Blood Pressure 100/58 L 100/51 L Pulse Oximetry 90 91 Intake/Output Intake/Output: Intake & Output 07/05/20 07/06/20 07/07/20 07/08/20 23:59 23:59 23:59 23:59 Intake Total 419 023 7039 740 Output Total 725 500 750 200 Balance -75 -30 2330 540 Meds/Results Medications: Active Medications Generic Name Dose Route Start Last Admin Trade Name Freq PRN Reason Stop Dose Admin Acetaminophen 650 mg 07/04/20 22:42 07/06/20 20:20 Acetaminophen 325 Mg Tablet PO 650 mg Q4H PRN Administration Mild Pain (1-3) Or Fever Al Hydrox/Mg Hydrox/Simethicone 30 ml 07/06/20 17:48 Mag Hydrox/Al Hydrox/Simeth 30 Ml Udc PO Q6H PRN Indigestion Albuterol 2.5 mg 07/08/20 10:43 Albuterol Sulfate Neb 2.5 Mg
--- NOTE | 2020-07-08 12:59 | PCOTNOTE ---
Attempted to see patient this pm, however patient getting blood and declined activity out of bed at this time.
[2020-07-08 14:05] LABS: SARS-CoV-2 RNA PCR Negative
--- NOTE | 2020-07-08 14:37 | PCPTNOTE ---
The PT treatment was unable to be completed this PM due to patient having low blood pressure and receiving blood transfusion. Will continue per Plan of Care frequency and duration.
--- NOTE | 2020-07-08 16:18 | WPDGICN ---
Assessment and Plan Assessment and plan (1) Acute on chronic anemia: Code(s): D64.9 - Anemia, unspecified Status: Acute Assessment and Plan: acute anemia most likely from hip fracture and recent surgery, getting blood transfusion now (2) Occult blood positive stool: Code(s): R19.5 - Other fecal abnormalities Status: Acute Assessment and Plan: could be perianal, etc. no need to complete gi work-up right now because recent hip surgery and no signs of overt gib if patient/family is interested can always see her as outpatient but will be nice to know if ever had a colonoscopy at some point (3) Closed intertrochanteric fracture of right femur: Qualifiers: Encounter type: subsequent encounter Fracture alignment: displaced Fracture healing: with routine healing Qualified Code(s): S72.141D - Displaced intertrochanteric fracture of right femur, subsequent encounter for closed fracture with routine healing Code(s): S72.141A - Displaced intertrochanteric fracture of right femur, initial encounter for closed fracture Status: Acute Assessment and Plan: by orthopedics, recovering (4) Alzheimer's dementia with behavioral disturbance: Code(s): G30.9 - Alzheimer's disease, unspecified; F02.81 - Dementia in other diseases classified elsewhere with behavioral disturbance Status: Acute GI Consult Note Consult date/time: 07/08/20 16:18 Reason for consult: occult blood stool, anemia HPI: Glo Cruz is a 80 year old female with history of dementia, [facility] resident with most recent hospitalization with covid-19. She also has chronic anemia with las hb 10.9 last month. This time she was admitted after she fell and had right hip fracture, she is poor historian because dementia. She had surgery and I am call to see her because anemia, hb 7.1, occult blood positive but RN says that she has not have obvious blood in stool or even recent stool. She is comfortable lying in bed. Review of Systems Constitutional: Constitutional: Denies chills Eyes: Eyes: Reports no additional eye complaints ENT: Reports system reviewed and no additional complaints, except as documented Cardiovascular: Cardiovascular: Denies chest pain Respiratory: Respiratory: Denies cough Gastrointestinal: Gastrointestinal: Denies abdominal pain Musculoskeletal: Musculoskeletal: Reports arthralgias Integumentary/Breasts: Skin/Breast: Denies pruritus Neurologic: Reports confusion Psychiatric: Psychiatric: Reports confusion Endocrine: Endocrine: Denies cold intolerance [facility] Past Medical History Medical History Alzheimer's dementia with behavioral disturbance Anemia Anxiety Chronic obstructive pulmonary disease COVID-19 (~05/2020) Hypothyroidism Rheumatoid arthritis Surgical History Surgical History History of foot surgery Family History Family History Father No problems noted. Mother Parkinson disease Sibling Congestive heart failure Social History Social History Social History: The patient is and is a [facility] resident. Former smoker. No alcohol or illicit substance use. Her daughter, Keren is power of civil rights attorney. She is listed as a do not resuscitate. Smoking status: Former smoker Tobacco type: cigarettes Second hand tobacco smoke exposure: No Alcohol intake: former Substance use: never Gender identity (if verbalized by the patient): Female Spiritual care concerns: No Meds Home Medications and Allergies Home Medications Medication Instructions Recorded Confirmed Type Myrbetriq 25 mg PO DAILY 05/23/20 07/04/20 History aspirin 81 mg PO DAILY 05/23/20 07/04/20 History buspi
[2020-07-08 16:26] LABS: Hematocrit 26.8 % (37.0-47.0); Hemoglobin 8.5 g/dL (12.0-15.0)
[2020-07-08] MEDS: ENOXAPARIN 30 MG/0.3 ML SYRINGE SUB-Q (20:05)
[2020-07-08] MEDS: DONEPEZIL HCL 10 MG TABLET PO (20:15)
[2020-07-09] VITALS (7 sets, daily range): BP systolic 93–116; BP diastolic 41–57; PULSE 61–87; RESP 18–20; TEMP 36.3–37.1; O2SAT 92–100
[2020-07-09 05:46] LABS: Anion Gap -2 mmol/L (8-16); Basophils Absolute Auto 0.1 K/mm3 (0.0-0.1); Basophils Percent Auto 0.8 % (0.2-1.2); Blood Urea Nitrogen 18 mg/dL (7-17); Calcium 7.3 mg/dL (8.4-10.2); Carbon Dioxide 32 mmol/L (22-30); Chloride 103 mmol/L (98-107); Eosinophils Absolute Auto 0.4 K/mm3 (0-0.3); Eosinophils Percent Auto 4.8 % (0-4.4); Estimated CRCL calculation 44 ml/min; Estimated Glomerular Filt Rate > 60; Glucose 86 mg/dL (65-105); Hematocrit 26.4 % (37.0-47.0); Hemoglobin 8.3 g/dL (12.0-15.0); Immature Granulocyte Absolute 0.04 K/mm3 (0.00-0.031); Immature Granulocyte Percent A 0.5 % (0-0.5); Lymphocytes Percent Auto 22.2 % (18.3-44.2); Mean Corpuscular HGB Conc 31.4 g/dl (32-36); Mean Corpuscular Volume 95.3 fl (80-100); Mean Platelet Volume 9.3 fl (7.4-10.4); Monocytes Absolute Auto 0.8 K/mm3 (0.1-0.6); Monocytes Percent Auto 8.9 % (2.6-8.5); Neutrophils Absolute Auto 5.4 K/mm3 (1.3-6.7); Neutrophils Percent Auto 62.8 % (45.5-73.1); Nucleated Red Blood Cells Perc 0.2 % (0.0-0.2); Platelet Count Result 259 k/mm3 (150-375); Potassium 4.1 mmol/L (3.4-5.0); Red Blood Count 2.77 M/mm3 (4.2-5.4); Red Cell Distribution Width 20.9 % (11.5-14.5); Sodium 133 mmol/L (137-145); White Blood Count 8.5 K/mm3 (4.5-10.0)
[2020-07-09 06:07] LABS: Vancomycin Random 5.3 ug/mL (10-20)
[2020-07-09] MEDS: LEVOTHYROXINE SODIUM 88 MCG TABLET PO (06:52)
[2020-07-09] MEDS: DIVALPROEX SODIUM 250 MG TAB.ER.24H PO ×2 (08:43→16:53)
[2020-07-09] MEDS: CALCIUM CARBONATE (OSCAL) 500 MG TABLET PO (08:43)
[2020-07-09] MEDS: FERROUS SULFATE 324 MG TABLET PO (08:43)
[2020-07-09] MEDS: busPIRone HCL 10 MG TABLET PO ×3 (08:43→16:53)
[2020-07-09] MEDS: PANTOPRAZOLE 40 MG TABLET PO (08:44)
[2020-07-09] MEDS: DOCUSATE SODIUM 100 MG CAPSULE PO ×2 (08:44→21:02)
[2020-07-09] MEDS: MIRABEGRON 25 MG ER TABLET PO (08:44)
[2020-07-09] MEDS: FOLIC ACID 1 MG TABLET PO (08:44)
[2020-07-09] MEDS: polyethylene glycoL 3350 17 GM POWD.PACK PO (08:44)
[2020-07-09] MEDS: IBUPROFEN IV 400 MG in SODIUM CHLORIDE 0.9% IV 100 ML 200 MG IVPB (10:45)
--- NOTE | 2020-07-09 10:52 | PM.PNORT ---
Progress Note: A&P Assessment and Plan (1) Closed intertrochanteric fracture of right femur: Qualifiers: Encounter type: subsequent encounter Fracture alignment: displaced Fracture healing: with routine healing Qualified Code(s): S72.141D - Displaced intertrochanteric fracture of right femur, subsequent encounter for closed fracture with routine healing Code(s): S72.141A - Displaced intertrochanteric fracture of right femur, initial encounter for closed fracture Status: Acute Assessment and Plan: POD #3: Intramedullary hip screw right intertrochanteric fracture Continue PT/OT. Walker. High fall risk. WBAT Continue pain control, limit narcotics. Ice lateral hip. Change dressing daily. DVT prophylaxis per hospitalist. Dispo: SNF vs Acute Rehab when medically stable. Subjective Subjective Date/Time Seen: 07/09/20 10:52 Complains of right lateral hip pain s/p PT this AM. No other complaints. Review of Systems Constitutional: Constitutional: Denies fever(s) Eyes: Eyes: Denies blurry vision ENT: Reports Normal hearing present Cardiovascular: Cardiovascular: Denies chest pain and Denies dyspnea Respiratory: Respiratory: Denies dyspnea and Denies wheezing Gastrointestinal: Gastrointestinal: Denies abdominal pain Genitourinary: Genitourinary: Reports urinary frequency Musculoskeletal: Musculoskeletal: Reports as per HPI and Denies numbness Integumentary/Breasts: Skin/Breast: Denies changing lesions and Denies sores Neurologic: Reports Normal hearing present, Reports confusion, Reports frequent falls, Denies numbness and Denies convulsions Psychiatric: Psychiatric: Denies behavioral changes, Denies confusion and Denies hallucinations Endocrine: Endocrine: Denies heat intolerance Hematologic/Lymphatic: Hematologic/Lymphatic: Denies easy bleeding Allergic/Immunologic: Allergic/Immunologic: Denies wheezing Exam Const: General: comfortable and no acute distress Resp: Effort & Inspection: normal respiratory effort Cardio: Rate: regular rate Rhythm: regular rhythm GI: Inspection: non-distended GI Palp: Yes Soft to palpation and No Tenderness to palpation present (GI) : Other: Urine clear Neuro: General: No gait normal (antalgic, limited, requiring assistance ) Cognition (Neuro): normal cognition Motor exam (neuro): strength not 5/5 throughout (weakness RLE ) and Abnormal motor strength present (decreased RLE ) Sensory Exam: normal sensation Extrem: Right lower extremity: hip/thigh (Right lateral hip incision c/d/i. ) Details: tenderness Location: of the hip Location: laterally, abnormal ROM (limited due to recent surgical intervention ) and other (Thigh soft/nontender. ); no deformity and no unusual warmth, lower leg (Negative Niko's Sign ) and foot Details: normal capillary refill, no edema, vascular exam Details: dorsalis pedis pulse present and posterior tibial pulse present, tendon exam Details: active flexion normal Location: of all toes and active extension normal Location: of all toes and motor-sensory exam Details: two point discrimination normal and light-touch normal Left lower extremity: normal to inspection, full ROM, normal capillary refill and hip/thigh Details: normal to inspection and normal ROM; no tenderness and no swelling Psych: Mental Status: mental status grossly normal Affect: normal affect Objective Data Vital Signs Vital Signs: Vital Signs - 24 hr 07/08/20 11:03 07/08/20 11:18 07/08/20 12:30 Temperature 36.5 C 36.3 C L 36.9 C Pulse Rate 104 H 82 69 Respiratory Rate 18 20 21 H Blood Pressure 100/58 L 100/51 L 108/44 L Pulse Oximetry 90 91 90 07/08/20 14:18 07/08/20 14:55 07/08/20 18:05 Temperature 37.1 C 36.3 C L 36.9 C Pulse Rate 81 81 80 Respiratory Rate 20 20 20 Blood Pressure 82/55 L 103/40 L 110/52 L Pulse Oximetry 96 91 94 07/08/20 20:00 07/08/20 22:04 07/09/20 05:03 Temperature 36.4 C 36.3 C L Pulse Rate 6
--- NOTE | 2020-07-09 13:04 | PM.CNPUL ---
Assessment and Plan Assessment and plan (1) Pneumonia: Code(s): J18.9 - Pneumonia, unspecified organism Status: Acute Assessment and Plan: The patient has an acute right upper lobe pneumonia regarding the rest of her lungs which showed diffuse interstitial pattern that is difficult to know whether this will improve over time or become permanent as a sequelae of her COVID-19 infection in May 2020. The plan today is to discontinue vancomycin and start ceftriaxone 1 g IV daily for 7 days. Continue doxycycline 100 mg b.i.d. for total of 7 days. Repeat high-resolution of the chest in 3 months. Continue oxygenation to keep sats 92-96%. Continue DVT prophylaxis and PT OT and ambulation as soon as the patient can safely do so. History of Present Illness History of Present Illness Consult date: 07/09/20 Chief complaint: Rt hip fx Narrative: This is a very pleasant 80-year-old female with dementia who was in the hospital for a fractured limb. I was asked to see her because a CT scan of the chest showed some sequelae from recent COVID-19 infection and May of 2020. A CT scan showed some diffuse interstitial opacities but nothing in the pattern of IPF for other I will disease. She also had a right upper lobe consolidation consistent with pneumonia. She does admit to cough productive of sputum production but I am not sure how accurate her history is given her dementia. She looks like she is in no acute respiratory distress and is on minimal oxygen at 2-3 L. she is not able to give me any further detailed history. Review of Systems Review of Systems: All systems reviewed & are unremarkable except as noted in HPI and below PMFSH Past Medical History Medical History (Updated 07/09/20 @ 13:07 by Yvon Kirkland MD) Acute on chronic anemia Alzheimer's dementia with behavioral disturbance Anemia Anxiety Chronic obstructive pulmonary disease COVID-19 (~05/2020) Hypothyroidism Rheumatoid arthritis Surgical History Surgical History History of foot surgery Family History Family History Father No problems noted. Mother Parkinson disease Sibling Congestive heart failure Social History Social History Social History: The patient is and is a care home resident. Former smoker. No alcohol or illicit substance use. Her daughter, Keren is power of assistant attorney general. She is listed as a do not resuscitate. Smoking status: Former smoker Tobacco type: cigarettes Second hand tobacco smoke exposure: No Alcohol intake: former Substance use: never Gender identity (if verbalized by the patient): Female Spiritual care concerns: No Meds Home Medications and Allergies Home Medications Medication Instructions Recorded Confirmed Type Myrbetriq 25 mg PO DAILY 05/23/20 07/04/20 History aspirin 81 mg PO DAILY 05/23/20 07/04/20 History buspirone 10 mg PO TID 05/23/20 07/04/20 History divalproex [Depakote ER] 250 mg PO BID 05/23/20 07/04/20 History donepezil 10 mg PO HS 05/23/20 07/04/20 History levothyroxine 75 mcg PO DAILY 05/23/20 07/04/20 History methotrexate sodium 10 mg PO WEEKLY 05/23/20 07/04/20 History polyethylene glycol 3350 [Miralax] 17 g PO BID PRN 05/23/20 07/04/20 History sennosides-docusate sodium [Senna 1 tab-cap PO TID PRN 05/23/20 07/04/20 History with Docusate Sodium] acetaminophen [Mapap 650 mg PO Q4H PRN #0 tablet 05/24/20 07/04/20 Rx (acetaminophen)] calcium [Calcium Oyster Shell] 1,250 mg PO DAILY 07/04/20 07/04/20 History ferrous sulfate 325 mg PO DAILY 07/04/20 07/04/20 History folic acid 1 mg PO DAILY 07/04/20 07/04/20 History ipratropium-albuterol [Combivent 1 puff INHALATION QID 07/04/20 07/04/20 History Respimat] lorazepam 0.5 mg PO HS 07/04/20 07/04/20 History lorazep
--- NOTE | 2020-07-09 14:51 | PM.IMPN ---
Progress Note: A&P Assessment and Plan (1) Closed intertrochanteric fracture of right femur: Qualifiers: Encounter type: subsequent encounter Fracture alignment: displaced Fracture healing: with routine healing Qualified Code(s): S72.141D - Displaced intertrochanteric fracture of right femur, subsequent encounter for closed fracture with routine healing Code(s): S72.141A - Displaced intertrochanteric fracture of right femur, initial encounter for closed fracture Status: Acute Assessment and Plan: Secondary to unwitnessed fall. X-ray showed comminuted, intertrochanteric right hip fracture. Vitamin D is sufficient. Calcium sufficient when corrected for hypoalbuminemia. She is s/p intramedullary hip screw right intertrochanteric fracture by Dr. Carreno 07/06/20. She tolerated the procedure well and continues to work with PT/OT. Orthopedic surgery has been consulted and input is appreciated Continue analgesics as needed for pain Continue PT/OT per orthopedic surgery recommendations Discussed with Dr. Carreno and he was fine to stop ASA given hemoccult positive stool and start lovenox for DVT ppx (2) Acute respiratory failure with hypoxia: Code(s): J96.01 - Acute respiratory failure with hypoxia Status: Acute Assessment and Plan: Chest x-ray upon presentation showed patchy opacities of the lungs which represent sequela of COVID-19 pneumonia. It also appears that she has a component of chronic restrictive lung disease. She did recover from COVID in May 2020. She was placed on oxygen post-operatively and remains on 3 liters today. She has no wheezing to suggest COPD exacerbation but combivent QID was resumed 07/09. Chest CTA was ordered 07/08 given persistent hypoxia and negative for pulmonary embolism but did demonstrate acute subsegmental right upper lobe consolidation so IV antibiotics were initiated 07/08. Echocardiogram was performed and demonstrated normal LV systolic function with EF 60-65%, grade I diastolic dysfunction. Continue treatment of pneumonia with plan below Continue supplemental oxygen as needed to maintain oxygen saturation >90%, wean as tolerated (3) Pneumonia: Code(s): J18.9 - Pneumonia, unspecified organism Status: Acute Assessment and Plan: She developed hypoxia post-operatively. She did have recent COVID-19 infection. Chest CTA demonstrated acute subsegmental right upper lobe consolidation so IV antibiotics were initiated 07/08. Vancomycin and doxycycline were initiated initially given her allergies. Continue treatment of pneumonia. Stop vancomycin and start IV ceftriaxone and continue IV doxycycline for treatment of pneumonia for a total of 7 days per pulmonology recommendations which are appreciated. Sputum culture ordered and pending Urinary antigens ordered and pending Blood cultures pending Continue supportive care with bronchodilators, incentive spirometry, and expectorant Continue supplemental oxygen as needed to maintain oxygen saturation >90% Continue to monitor (4) Acute on chronic anemia: Code(s): D64.9 - Anemia, unspecified Status: Acute Assessment and Plan: Review of prior labs demonstrates chronic anemia. Upon presentation, her hemoglobin was slightly lower than her baseline. She has no evidence of overt blood loss. Iron panel demonstrates adequate iron stores. B12 and folate wnl. Hb dropped to 7.1 and she was transfused 1 unit pRBC 07/08/20. Hb is now stable. Hemoccult testing is positive and GI was consulted and recommends outpatient evaluation with no further workup at this time since she has no overt bleeding. Will monitor closely for any bleeding. Monitor H&H and transfuse as needed with hemoglobin threshold <7.0 (5) Alzheimer's dementia with behavioral disturbance: Code(s): G30.9 - Alzheimer's disease, unspecified; F02.81 - Dementia in other diseases classified elsewhere with
[2020-07-09] MEDS: LORazepam (*CRX) 0.5 MG TABLET PO ×2 (16:51→21:02)
[2020-07-09] MEDS: ENOXAPARIN 30 MG/0.3 ML SYRINGE SUB-Q (21:01)
[2020-07-09] MEDS: guaiFENesin 12 HR 600 MG TABCR 1200 MG PO (21:01)
[2020-07-09] MEDS: DONEPEZIL HCL 10 MG TABLET PO (21:01)
[2020-07-10] VITALS (8 sets, daily range): BP systolic 108–123; BP diastolic 47–56; PULSE 66–74; RESP 16–18; TEMP 36.3–37.4; O2SAT 87–100
[2020-07-10 05:29] LABS: Hematocrit 27.3 % (37.0-47.0); Hemoglobin 8.5 g/dL (12.0-15.0); Mean Corpuscular HGB Conc 31.1 g/dl (32-36); Mean Corpuscular Hemoglobin 30.1 pg (26-34); Mean Corpuscular Volume 96.8 fl (80-100); Mean Platelet Volume 8.9 fl (7.4-10.4); Platelet Count Result 262 k/mm3 (150-375); Red Blood Count 2.82 M/mm3 (4.2-5.4); Red Cell Distribution Width 20.3 % (11.5-14.5); White Blood Count 7.5 K/mm3 (4.5-10.0)
[2020-07-10] MEDS: LEVOTHYROXINE SODIUM 88 MCG TABLET PO (05:30)
[2020-07-10 05:54] LABS: Anion Gap -3 mmol/L (8-16); Blood Urea Nitrogen 17 mg/dL (7-17); Carbon Dioxide 32 mmol/L (22-30); Chloride 105 mmol/L (98-107); Estimated CRCL calculation 38 ml/min; Estimated Glomerular Filt Rate > 60; Glucose 86 mg/dL (65-105); Sodium 134 mmol/L (137-145)
[2020-07-10] MEDS: busPIRone HCL 10 MG TABLET PO ×3 (08:34→17:27)
[2020-07-10] MEDS: MIRABEGRON 25 MG ER TABLET PO (08:35)
[2020-07-10] MEDS: FERROUS SULFATE 324 MG TABLET PO (08:35)
[2020-07-10] MEDS: FOLIC ACID 1 MG TABLET PO (08:35)
[2020-07-10] MEDS: DOCUSATE SODIUM 100 MG CAPSULE PO ×2 (08:35→20:28)
[2020-07-10] MEDS: PANTOPRAZOLE 40 MG TABLET PO (08:35)
[2020-07-10] MEDS: DIVALPROEX SODIUM 250 MG TAB.ER.24H PO ×2 (08:35→17:27)
[2020-07-10] MEDS: CALCIUM CARBONATE (OSCAL) 500 MG TABLET PO (08:35)
[2020-07-10] MEDS: guaiFENesin 12 HR 600 MG TABCR 1200 MG PO ×2 (08:35→20:27)
[2020-07-10] MEDS: polyethylene glycoL 3350 17 GM POWD.PACK PO (08:36)
[2020-07-10] MEDS: ACETAMINOPHEN 325 MG TABLET 650 MG PO (08:54)
--- NOTE | 2020-07-10 10:56 | PM.PNORT ---
Progress Note: A&P Assessment and Plan (1) Closed intertrochanteric fracture of right femur: Qualifiers: Encounter type: subsequent encounter Fracture alignment: displaced Fracture healing: with routine healing Qualified Code(s): S72.141D - Displaced intertrochanteric fracture of right femur, subsequent encounter for closed fracture with routine healing Code(s): S72.141A - Displaced intertrochanteric fracture of right femur, initial encounter for closed fracture Status: Acute Assessment and Plan: Postoperative day 4 right hip trochanteric nail. Patient with orientation which comes and goes. Comfortable at rest. May have some pain with therapy and motion but recommend limit pain medicine due to dementia. Weight-bearing as tolerated. Discharge to facility when medically stable. Follow-up orthopedic clinic 4 to 5 weeks. Subjective Subjective Date/Time Seen: 07/10/20 10:56 Patient awake oriented to self and place, disoriented to time. Complains of right hip pain. Recent bowel movement. Exam Const: General: comfortable and no acute distress Resp: Effort & Inspection: normal respiratory effort Cardio: Rate: regular rate Rhythm: regular rhythm GI: Inspection: non-distended GI Palp: Yes Soft to palpation and No Tenderness to palpation present (GI) Neuro: General: No gait normal (antalgic, limited, requiring assistance ) Cognition (Neuro): normal cognition Motor exam (neuro): strength not 5/5 throughout (weakness RLE ) and Abnormal motor strength present (decreased RLE ) Sensory Exam: normal sensation Extrem: Right lower extremity: hip/thigh (Right lateral hip incision c/d/i. ) Details: tenderness Location: of the hip Location: laterally, abnormal ROM (limited due to recent surgical intervention ) and other (Thigh soft/nontender. ); no deformity and no unusual warmth, lower leg (Negative Niko's Sign ) and foot Details: normal capillary refill, no edema, vascular exam Details: dorsalis pedis pulse present and posterior tibial pulse present, tendon exam Details: active flexion normal Location: of all toes and active extension normal Location: of all toes and motor-sensory exam Details: two point discrimination normal and light-touch normal Left lower extremity: normal to inspection, full ROM, normal capillary refill and hip/thigh Details: normal to inspection and normal ROM; no tenderness and no swelling Psych: Appearance: disheveled Attitude: Other attitude/behavior findings present (Psych) (flat affect) Insight: Poor insight present (Psych) Judgement: Poor judgement present (Psych) Objective Data Vital Signs Vital Signs: Vital Signs - 24 hr 07/09/20 14:00 07/09/20 18:00 07/09/20 20:00 Temperature 98.3 F 98.7 F 97.4 F L Pulse Rate 70 61 84 Respiratory Rate 18 20 18 Blood Pressure 93/41 L 116/49 L 110/51 L Pulse Oximetry 97 95 100 07/10/20 04:00 07/10/20 08:00 Temperature 99.3 F Pulse Rate 71 Respiratory Rate 18 Blood Pressure 110/56 L Pulse Oximetry 95 100 Intake/Output Intake/Output: Intake & Output 07/07/20 07/08/20 07/09/20 07/10/20 23:59 23:59 23:59 23:59 Intake Total 3080 1597 570 180 Output Total 750 700 Balance 2330 897 570 180 Meds/Results Medications: Active Medications Generic Name Dose Route Start Last Admin Trade Name Freq PRN Reason Stop Dose Admin Acetaminophen 650 mg 07/04/20 22:42 07/10/20 08:54 Acetaminophen 325 Mg Tablet PO 650 mg Q4H PRN Administration Mild Pain (1-3) Or Fever Al Hydrox/Mg Hydrox/Simethicone 30 ml 07/06/20 17:48 Mag Hydrox/Al Hydrox/Simeth 30 Ml Udc PO Q6H PRN Indigestion Albuterol 2.5 mg 07/08/20 10:43 Albuterol Sulfate Neb 2.5 Mg/0.5 Ml Inh INHALATION Q6HRT PRN Shortness Of Breath Albuterol/Ipratropium 1 puff 07/08/20 12:00 07/10/20 08:36 Albuterol/Ipratropium (*Sp) 4 Gm Respimat INHALATION 08/07/20 12:01 1 puff QIDRT RONALDO Administration Aspirin 325
--- NOTE | 2020-07-10 11:06 | PM.PNPUL ---
Progress Note: A&P Assessment and Plan (1) Pneumonia: Qualifiers: Pneumonia type: due to unspecified organism Laterality: right Lung location: upper lobe of lung Qualified Code(s): J18.9 - Pneumonia, unspecified organism Code(s): J18.9 - Pneumonia, unspecified organism Status: Acute Assessment and Plan: The patient has an acute right upper lobe pneumonia regarding the rest of her lungs which showed diffuse interstitial pattern that is difficult to know whether this will improve over time or become permanent as a sequelae of her COVID-19 infection in May 2020. The plan today is to discontinue vancomycin and start ceftriaxone 1 g IV daily for 7 days. Continue doxycycline 100 mg b.i.d. for total of 7 days. Repeat high-resolution of the chest in 3 months. Continue oxygenation to keep sats 92-96%. Continue DVT prophylaxis and PT OT and ambulation as soon as the patient can safely do so. Subjective Date/time seen: 07/10/20 11:06 Interval history: She appears to be doing well from a respiratory point of view and has no complaints. Review of Systems Review of Systems: All systems reviewed & are unremarkable except as noted in HPI and below Exam Const: General: cooperative, comfortable, no acute distress, well developed, alert, awake and Physically active HENMT: Head: normal to inspection and normocephalic Eyes: General: appearance normal, both eyes and all related structures Resp: Effort & Inspection: normal respiratory effort and able to speak in complete sentences Auscultation: crackles and diminished lung sounds Cardio: Jugular venous distension: no JVD Rate: regular rate Rhythm: regular rhythm Heart sounds: S1 normal heart sound present and S2 normal heart sound present GI: Inspection: normal to inspection Auscultation: normal bowel sounds Skin: General skin exam: no rashes or lesions noted and ecchymosis Neuro: Speech: normal speech Extrem: General: normal to inspection and no clubbing, cyanosis or edema Objective Data Vital Signs Vital Signs: Vital Signs - 24 hr 07/09/20 14:00 07/09/20 18:00 07/09/20 20:00 Temperature 36.8 C 37.1 C 36.3 C L Pulse Rate 70 61 84 Respiratory Rate 18 20 18 Blood Pressure 93/41 L 116/49 L 110/51 L Pulse Oximetry 97 95 100 07/10/20 04:00 07/10/20 08:00 Temperature 37.4 C Pulse Rate 71 Respiratory Rate 18 Blood Pressure 110/56 L Pulse Oximetry 95 100 Intake/Output Intake/Output: Intake & Output 07/07/20 07/08/20 07/09/20 07/10/20 23:59 23:59 23:59 23:59 Intake Total 3080 1597 570 180 Output Total 750 700 Balance 2330 897 570 180 Meds/Results Medications: Active Medications Generic Name Dose Route Start Last Admin Trade Name Freq PRN Reason Stop Dose Admin Acetaminophen 650 mg 07/04/20 22:42 07/10/20 08:54 Acetaminophen 325 Mg Tablet PO 650 mg Q4H PRN Administration Mild Pain (1-3) Or Fever Al Hydrox/Mg Hydrox/Simethicone 30 ml 07/06/20 17:48 Mag Hydrox/Al Hydrox/Simeth 30 Ml Udc PO Q6H PRN Indigestion Albuterol 2.5 mg 07/08/20 10:43 Albuterol Sulfate Neb 2.5 Mg/0.5 Ml Inh INHALATION Q6HRT PRN Shortness Of Breath Albuterol/Ipratropium 1 puff 07/08/20 12:00 07/10/20 08:36 Albuterol/Ipratropium (*Sp) 4 Gm Respimat INHALATION 08/07/20 12:01 1 puff QIDRT RONALDO Administration Aspirin 325 mg 07/06/20 21:00 07/07/20 20:32 Aspirin 325 Mg Enteric Tablet PO 325 mg Q12HR RONALDO Administration Buspirone HCl 10 mg 07/05/20 09:00 07/10/20 08:34 Buspirone Hcl 10 Mg Tablet PO 10 mg TID RONALDO Administration Calcium Carbonate 500 mg 07/07/20 09:00 07/10/20 08:35 Calcium Carbonate (Oscal) 500 Mg Tablet PO 500 mg DAILY RONALDO Administration Divalproex Sodium 250 mg 07/05/20 08:00 07/10/20 08:35 Divalproex Sodium 250 Mg Tab.Er.24h PO 250 mg BIDWM RONALDO Administration Docusate Sodium 100 mg 07/06/20 09:00 07/10/20 08:35 Do
[2020-07-10] MEDS: IBUPROFEN IV 400 MG in SODIUM CHLORIDE 0.9% IV 100 ML 200 MG IVPB (14:26)
[2020-07-10] MEDS: LORazepam (*CRX) 0.5 MG TABLET PO ×2 (15:45→20:27)
--- NOTE | 2020-07-10 17:18 | PM.IMPN ---
Progress Note: A&P Assessment and Plan (1) Closed intertrochanteric fracture of right femur: Qualifiers: Encounter type: subsequent encounter Fracture alignment: displaced Fracture healing: with routine healing Qualified Code(s): S72.141D - Displaced intertrochanteric fracture of right femur, subsequent encounter for closed fracture with routine healing Code(s): S72.141A - Displaced intertrochanteric fracture of right femur, initial encounter for closed fracture Status: Acute Assessment and Plan: Secondary to unwitnessed fall. X-ray showed comminuted, intertrochanteric right hip fracture. Vitamin D is sufficient. Calcium sufficient when corrected for hypoalbuminemia. She is s/p intramedullary hip screw right intertrochanteric fracture by Dr. Carreno 07/06/20. She tolerated the procedure well and continues to work with PT/OT. She is ambulating very well per discussion with PT today. Orthopedic surgery has been consulted and input is appreciated Continue analgesics as needed for pain Continue PT/OT per orthopedic surgery recommendations Discussed with Dr. Carreno and he was fine to stop ASA given hemoccult positive stool and start lovenox for DVT ppx (2) Acute respiratory failure with hypoxia: Code(s): J96.01 - Acute respiratory failure with hypoxia Status: Acute Assessment and Plan: Chest x-ray upon presentation showed patchy opacities of the lungs which represent sequela of COVID-19 pneumonia. It also appears that she has a component of chronic restrictive lung disease. She did recover from COVID in May 2020. She was placed on oxygen post-operatively. She has no wheezing to suggest COPD exacerbation but combivent QID was resumed 07/09. Chest CTA was ordered 07/08 given persistent hypoxia and negative for pulmonary embolism but did demonstrate acute subsegmental right upper lobe consolidation so IV antibiotics were initiated 07/08. Echocardiogram was performed and demonstrated normal LV systolic function with EF 60-65%, grade I diastolic dysfunction. She was weaned to 1 liter today and she is doing very well from a respiratory standpoint. Continue treatment of pneumonia with plan below Continue supplemental oxygen as needed to maintain oxygen saturation >90%, wean as tolerated (3) Pneumonia: Qualifiers: Pneumonia type: due to unspecified organism Laterality: right Lung location: upper lobe of lung Qualified Code(s): J18.9 - Pneumonia, unspecified organism Code(s): J18.9 - Pneumonia, unspecified organism Status: Acute Assessment and Plan: She developed hypoxia post-operatively. She did have recent COVID-19 infection. Chest CTA demonstrated acute subsegmental right upper lobe consolidation so IV antibiotics were initiated 07/08. Vancomycin was initiated initially given her allergies and pulmonology recommended to discontinue vancomycin and start ceftriaxone. She was weaned to 1 liter and doing very well. Continue IV ceftriaxone (day 2) and resume IV doxycycline (she received 1 dose 07/08 but order was not continued and will be resumed today) for treatment of pneumonia for a total of 7 days per pulmonology recommendations which are appreciated. Sputum culture ordered and pending Urinary antigens ordered and pending Blood cultures demonstrate NGTD Continue supportive care with bronchodilators, incentive spirometry, and expectorant Continue supplemental oxygen as needed to maintain oxygen saturation >90% Continue to monitor (4) Acute on chronic anemia: Code(s): D64.9 - Anemia, unspecified Status: Acute Assessment and Plan: Review of prior labs demonstrates chronic anemia. Upon presentation, her hemoglobin was slightly lower than her baseline. She has no evidence of overt blood loss. Iron panel demonstrates adequate iron stores. B12 and folate wnl. Hb dropped to 7.1 and she was transfused 1 unit pRBC 07/08/20. Hb remains s
[2020-07-10] MEDS: DONEPEZIL HCL 10 MG TABLET PO (20:27)
[2020-07-10] MEDS: ENOXAPARIN 30 MG/0.3 ML SYRINGE SUB-Q (20:28)
[2020-07-11 06:00] VITALS: BP 118/50; PULSE 86; RESP 16; TEMP 36.8; O2SAT 94
[2020-07-11] MEDS: LEVOTHYROXINE SODIUM 88 MCG TABLET PO (06:03)
[2020-07-11 06:06] LABS: Hematocrit 27.3 % (37.0-47.0); Hemoglobin 8.4 g/dL (12.0-15.0); Mean Corpuscular HGB Conc 30.8 g/dl (32-36); Mean Corpuscular Hemoglobin 30.1 pg (26-34); Mean Corpuscular Volume 97.8 fl (80-100); Mean Platelet Volume 8.8 fl (7.4-10.4); Platelet Count Result 293 k/mm3 (150-375); Red Blood Count 2.79 M/mm3 (4.2-5.4); White Blood Count 6.5 K/mm3 (4.5-10.0)
[2020-07-11 06:23] LABS: Anion Gap -4 mmol/L (8-16); Blood Urea Nitrogen 17 mg/dL (7-17); Carbon Dioxide 31 mmol/L (22-30); Chloride 105 mmol/L (98-107); Estimated CRCL calculation 38 ml/min; Estimated Glomerular Filt Rate > 60; Glucose 81 mg/dL (65-105); Potassium 4.1 mmol/L (3.4-5.0); Sodium 132 mmol/L (137-145)
[2020-07-11 08:09] VITALS: PULSE 75; RESP 20; O2SAT 92
[2020-07-11] MEDS: DIVALPROEX SODIUM 250 MG TAB.ER.24H PO ×2 (08:42→17:19)
[2020-07-11] MEDS: PANTOPRAZOLE 40 MG TABLET PO (08:42)
[2020-07-11] MEDS: DOCUSATE SODIUM 100 MG CAPSULE PO (08:42)
[2020-07-11] MEDS: MIRABEGRON 25 MG ER TABLET PO (08:42)
[2020-07-11] MEDS: FOLIC ACID 1 MG TABLET PO (08:42)
[2020-07-11] MEDS: guaiFENesin 12 HR 600 MG TABCR 1200 MG PO ×2 (08:42→20:00)
[2020-07-11] MEDS: FERROUS SULFATE 324 MG TABLET PO (08:42)
[2020-07-11] MEDS: busPIRone HCL 10 MG TABLET PO ×3 (08:42→16:33)
[2020-07-11] MEDS: CALCIUM CARBONATE (OSCAL) 500 MG TABLET PO (08:42)
[2020-07-11] MEDS: polyethylene glycoL 3350 17 GM POWD.PACK PO (08:43)
[2020-07-11 08:50] VITALS: O2SAT 87
[2020-07-11] MEDS: ACETAMINOPHEN 325 MG TABLET 650 MG PO ×2 (10:03→17:18)
--- NOTE | 2020-07-11 10:57 | PCOTNOTE ---
Attempted to see patient this am, however patient presented with increased confusion. Pt attempting to use call light as telephone. Pt agitated and combative upon trying to assist patient with call light. Pt not seen for this reason.
[2020-07-11 14:00] VITALS: BP 104/54; PULSE 74; RESP 18; TEMP 37.1; O2SAT 96
--- NOTE | 2020-07-11 16:58 | PM.IMPN ---
Progress Note: A&P Assessment and Plan (1) Closed intertrochanteric fracture of right femur: Qualifiers: Encounter type: subsequent encounter Fracture alignment: displaced Fracture healing: with routine healing Qualified Code(s): S72.141D - Displaced intertrochanteric fracture of right femur, subsequent encounter for closed fracture with routine healing Code(s): S72.141A - Displaced intertrochanteric fracture of right femur, initial encounter for closed fracture Status: Acute Assessment and Plan: Secondary to unwitnessed fall. X-ray showed comminuted, intertrochanteric right hip fracture. Vitamin D is sufficient. Calcium sufficient when corrected for hypoalbuminemia. She is s/p intramedullary hip screw right intertrochanteric fracture by Dr. Carreno 07/06/20. She tolerated the procedure well and continues to work with PT/OT. Orthopedic surgery has been consulted and input is appreciated Continue analgesics as needed for pain Continue PT/OT per orthopedic surgery recommendations Discussed with Dr. Carreno and he was fine to stop ASA given hemoccult positive stool and continue lovenox for DVT ppx (2) Acute respiratory failure with hypoxia: Code(s): J96.01 - Acute respiratory failure with hypoxia Status: Acute Assessment and Plan: Chest x-ray upon presentation showed patchy opacities of the lungs which represent sequela of COVID-19 pneumonia. It also appears that she has a component of chronic restrictive lung disease. She did recover from COVID in May 2020. She was placed on oxygen post-operatively. She has no wheezing to suggest COPD exacerbation but combivent QID was resumed 07/09. Chest CTA was ordered 07/08 given persistent hypoxia and negative for pulmonary embolism but did demonstrate acute subsegmental right upper lobe consolidation so IV antibiotics were initiated 07/08. Echocardiogram was performed and demonstrated normal LV systolic function with EF 60-65%, grade I diastolic dysfunction. She remains on 1 liter today. She may require oxygen at discharge and daughter notes she was told she needs oxygen in the past. Continue treatment of pneumonia with plan below Continue supplemental oxygen as needed to maintain oxygen saturation >90%, wean as tolerated (3) Pneumonia: Qualifiers: Pneumonia type: due to unspecified organism Laterality: right Lung location: upper lobe of lung Qualified Code(s): J18.9 - Pneumonia, unspecified organism Code(s): J18.9 - Pneumonia, unspecified organism Status: Acute Assessment and Plan: She developed hypoxia post-operatively. She did have recent COVID-19 infection. Chest CTA demonstrated acute subsegmental right upper lobe consolidation so IV antibiotics were initiated 07/08. Vancomycin was initiated initially given her allergies and pulmonology recommended to discontinue vancomycin and start ceftriaxone. She remains on 1 liter and continues to improve. Continue IV ceftriaxone (day 3) and IV doxycycline (day 2) for treatment of pneumonia for a total of 7 days per pulmonology recommendations which are appreciated. Anticipate possible discharge on PO antibiotics tomorrow. Sputum culture ordered and pending Urinary antigens ordered and pending Blood cultures demonstrate NGTD Continue supportive care with bronchodilators, incentive spirometry, and expectorant Continue supplemental oxygen as needed to maintain oxygen saturation >90% Continue to monitor (4) Acute on chronic anemia: Code(s): D64.9 - Anemia, unspecified Status: Acute Assessment and Plan: Review of prior labs demonstrates chronic anemia. Upon presentation, her hemoglobin was slightly lower than her baseline. She has no evidence of overt blood loss. Iron panel demonstrates adequate iron stores. B12 and folate wnl. Hb dropped to 7.1 and she was transfused 1 unit pRBC 07/08/20. Hb remains stable. Hemoccult testing is posi
--- NOTE | 2020-07-11 18:42 | PM.PNPUL ---
Progress Note: A&P Assessment and Plan (1) Pneumonia: Qualifiers: Pneumonia type: due to unspecified organism Laterality: right Lung location: upper lobe of lung Qualified Code(s): J18.9 - Pneumonia, unspecified organism Code(s): J18.9 - Pneumonia, unspecified organism Status: Acute Assessment and Plan: The patient has an acute right upper lobe pneumonia regarding the rest of her lungs which showed diffuse interstitial pattern that is difficult to know whether this will improve over time or become permanent as a sequelae of her COVID-19 infection in May 2020. The plan today is to discontinue vancomycin and start ceftriaxone 1 g IV daily for 7 days. Continue doxycycline 100 mg b.i.d. for total of 7 days. Repeat high-resolution of the chest in 3 months. Continue oxygenation to keep sats 92-96%. Continue DVT prophylaxis and PT OT and ambulation as soon as the patient can safely do so. Subjective Date/time seen: 07/11/20 18:42 Interval history: Doing well from a pulmonary perspective Review of Systems Review of Systems: All systems reviewed & are unremarkable except as noted in HPI and below Exam Const: General: cooperative, comfortable, no acute distress, well developed, alert, awake and Physically active HENMT: Head: normal to inspection and normocephalic Eyes: General: appearance normal, both eyes and all related structures Resp: Effort & Inspection: normal respiratory effort and able to speak in complete sentences Auscultation: crackles and diminished lung sounds Cardio: Jugular venous distension: no JVD Rate: regular rate Rhythm: regular rhythm Heart sounds: S1 normal heart sound present and S2 normal heart sound present GI: Inspection: normal to inspection Auscultation: normal bowel sounds Skin: General skin exam: no rashes or lesions noted and ecchymosis Neuro: Speech: normal speech Extrem: General: normal to inspection and no clubbing, cyanosis or edema Objective Data Vital Signs Vital Signs: Vital Signs - 24 hr 07/10/20 21:50 07/11/20 06:00 07/11/20 08:09 Temperature 36.3 C L 36.8 C Pulse Rate 66 86 75 Respiratory Rate 16 16 20 Blood Pressure 123/47 L 118/50 L Pulse Oximetry 94 94 92 07/11/20 08:50 07/11/20 14:00 Temperature 37.1 C Pulse Rate 74 Respiratory Rate 18 Blood Pressure 104/54 L Pulse Oximetry 87 L 96 Intake/Output Intake/Output: Intake & Output 07/08/20 07/09/20 07/10/20 07/11/20 23:59 23:59 23:59 23:59 Intake Total 1597 570 484 300 Output Total 700 300 200 Balance 897 570 184 100 Meds/Results Medications: Active Medications Generic Name Dose Route Start Last Admin Trade Name Freq PRN Reason Stop Dose Admin Acetaminophen 650 mg 07/04/20 22:42 07/11/20 17:18 Acetaminophen 325 Mg Tablet PO 650 mg Q4H PRN Administration Mild Pain (1-3) Or Fever Al Hydrox/Mg Hydrox/Simethicone 30 ml 07/06/20 17:48 Mag Hydrox/Al Hydrox/Simeth 30 Ml Udc PO Q6H PRN Indigestion Albuterol 2.5 mg 07/08/20 10:43 Albuterol Sulfate Neb 2.5 Mg/0.5 Ml Inh INHALATION Q6HRT PRN Shortness Of Breath Albuterol/Ipratropium 1 puff 07/08/20 12:00 07/11/20 16:33 Albuterol/Ipratropium (*Sp) 4 Gm Respimat INHALATION 08/07/20 12:01 1 puff QIDRT RONALDO Administration Aspirin 325 mg 07/06/20 21:00 07/07/20 20:32 Aspirin 325 Mg Enteric Tablet PO 325 mg Q12HR RONALDO Administration Buspirone HCl 10 mg 07/05/20 09:00 07/11/20 16:33 Buspirone Hcl 10 Mg Tablet PO 10 mg TID RONALDO Administration Calcium Carbonate 500 mg 07/07/20 09:00 07/11/20 08:42 Calcium Carbonate (Oscal) 500 Mg Tablet PO 500 mg DAILY RONALDO Administration Divalproex Sodium 250 mg 07/05/20 08:00 07/11/20 17:19 Divalproex Sodium 250 Mg Tab.Er.24h PO 250 mg BIDWM RONALDO Administration Donepezil HCl 10 mg 07/05/20 21:00 07/10/20 20:27 Donepezil Hcl 10 Mg Tablet PO 10 mg HS RONALDO Administrati
[2020-07-11] MEDS: ENOXAPARIN 30 MG/0.3 ML SYRINGE SUB-Q (20:00)
[2020-07-11] MEDS: LORazepam (*CRX) 0.5 MG TABLET PO (20:00)
[2020-07-11] MEDS: DONEPEZIL HCL 10 MG TABLET PO (20:00)
[2020-07-11] MEDS: IBUPROFEN IV 400 MG in SODIUM CHLORIDE 0.9% IV 100 ML 200 MG IVPB (20:17)
[2020-07-11 21:46] VITALS: BP 123/50; PULSE 80; RESP 18; TEMP 36.5; O2SAT 93
[2020-07-12 05:27] LABS: Hematocrit 27.1 % (37.0-47.0); Hemoglobin 8.5 g/dL (12.0-15.0); Mean Corpuscular HGB Conc 31.4 g/dl (32-36); Mean Corpuscular Hemoglobin 31.4 pg (26-34); Mean Platelet Volume 8.9 fl (7.4-10.4); Platelet Count Result 277 k/mm3 (150-375); Red Blood Count 2.71 M/mm3 (4.2-5.4); Red Cell Distribution Width 20.1 % (11.5-14.5); White Blood Count 6.4 K/mm3 (4.5-10.0)
[2020-07-12 06:00] VITALS: BP 126/49; PULSE 69; RESP 14; TEMP 36.4; O2SAT 94
[2020-07-12 06:05] LABS: Anion Gap -6 mmol/L (8-16); Blood Urea Nitrogen 21 mg/dL (7-17); Calcium 7.7 mg/dL (8.4-10.2); Carbon Dioxide 30 mmol/L (22-30); Chloride 108 mmol/L (98-107); Estimated CRCL calculation 38 ml/min; Estimated Glomerular Filt Rate > 60; Glucose 76 mg/dL (65-105); Potassium 4.4 mmol/L (3.4-5.0); Sodium 132 mmol/L (137-145)
[2020-07-12] MEDS: LEVOTHYROXINE SODIUM 88 MCG TABLET PO (06:30)
[2020-07-12 08:15] LABS: Vancomycin Trough < 5.0 ug/mL (10.0-20.0)
[2020-07-12 08:36] VITALS: O2SAT 90
[2020-07-12] MEDS: ACETAMINOPHEN 325 MG TABLET 650 MG PO ×2 (08:38→13:23)
[2020-07-12] MEDS: FERROUS SULFATE 324 MG TABLET PO (08:39)
[2020-07-12] MEDS: MIRABEGRON 25 MG ER TABLET PO (08:39)
[2020-07-12] MEDS: FOLIC ACID 1 MG TABLET PO (08:39)
[2020-07-12] MEDS: DIVALPROEX SODIUM 250 MG TAB.ER.24H PO (08:39)
[2020-07-12] MEDS: PANTOPRAZOLE 40 MG TABLET PO (08:40)
[2020-07-12] MEDS: busPIRone HCL 10 MG TABLET PO ×2 (08:40→12:13)
[2020-07-12] MEDS: guaiFENesin 12 HR 600 MG TABCR 1200 MG PO (08:40)
[2020-07-12] MEDS: CALCIUM CARBONATE (OSCAL) 500 MG TABLET PO (08:40)
--- NOTE | 2020-07-12 10:03 | PM.DS ---
DS: Admitting Diagnosis Admitting Diagnosis Admitting Diagnosis: Comminuted, intertrochanteric right hip fracture DS: Discharge Diagnosis Discharge Diagnosis (1) Closed intertrochanteric fracture of right femur: Qualifiers: Encounter type: subsequent encounter Fracture alignment: displaced Fracture healing: with routine healing Qualified Code(s): S72.141D - Displaced intertrochanteric fracture of right femur, subsequent encounter for closed fracture with routine healing Code(s): S72.141A - Displaced intertrochanteric fracture of right femur, initial encounter for closed fracture Status: Acute Assessment and Plan: Discharge Summary (Date of service 07/12/20): Mrs. Cruz is an 80 y.o. female with PMH significant for COPD, hypothyroidism, anemia, rheumatoid arthritis, and Alzheimer's dementia who presented to the emergency department 07/04/20 for the evaluation of right hip fracture after a fall. Plain films of the right hip and pelvis showed comminuted, intertrochanteric right hip fracture. CXR demonstrated patchy opacities consistent with recent COVID-[address] brain had no acute findings and age related change. She underwent intramedullary hip screw by Dr. Carreno 07/06/20 and pneumonia. Vitamin D was sufficient. Calcium sufficient when corrected for hypoalbuminemia. She tolerated the procedure well and continued to progress from a PT/OT standpoint. Pain was well-controlled. She developed post-operative hypoxia and CTA chest was ordered and negative for pulmonary embolism but did show acute RUL pneumonia. She did well on bedside swallow evaluation with no evidence of aspiration.She was treated with IV antibiotics and pulmonology was consulted and recommended to switch to IV ceftriaxone and continue doxycycline. She improved significantly. She did require 1 liter per nasal cannula at discharge which can be weaned as tolerated. She will need repeat CT chest in 3 months per pulmonology recommendations to ensure resolution of consolidation felt secondary to pneumonia. Hemoccult stool was positive but she had no evidence of overt GI bleeding and GI, Dr. Stewart, recommended outpatient colonoscopy if her family/POA decide to proceed. The plan of care was discussed with her POA, Niesha, who verbalized understanding. She was discharged in hemodynamically stable condition on the afternoon of 07/12/20. (2) Acute respiratory failure with hypoxia: Code(s): J96.01 - Acute respiratory failure with hypoxia Status: Acute Assessment and Plan: Chest x-ray upon presentation showed patchy opacities of the lungs which represent sequela of COVID-19 pneumonia. It also appears that she has a component of chronic restrictive lung disease. She did recover from COVID in May 2020. She was placed on oxygen post-operatively. She has no wheezing to suggest COPD exacerbation but combivent QID was resumed 07/09. Chest CTA was ordered 07/08 given persistent hypoxia and negative for pulmonary embolism but did demonstrate acute subsegmental right upper lobe consolidation so IV antibiotics were initiated 07/08. Echocardiogram was performed and demonstrated normal LV systolic function with EF 60-65%, grade I diastolic dysfunction. She remained on 1 liter per nasal cannula and her daughter did say she has been told she needed oxygen in the past. She may wean as tolerated at the assisted. (3) Pneumonia: Qualifiers: Laterality: right Lung location: upper lobe of lung Pneumonia type: due to unspecified organism Qualified Code(s): J18.9 - Pneumonia, unspecified organism Code(s): J18.9 - Pneumonia, unspecified organism Status: Acute Assessment and Plan: She developed hypoxia post-operatively. She did have recent COVID-19 infection. Chest CTA demonstrated acute subsegmental right upper lobe consolidation so IV antibiotics were initiated 07/08. Vancomycin was initiated initially given her allerg
--- NOTE | 2020-07-12 10:59 | PM.PNPUL ---
Progress Note: A&P Assessment and Plan (1) Pneumonia: Qualifiers: Pneumonia type: due to unspecified organism Laterality: right Lung location: upper lobe of lung Qualified Code(s): J18.9 - Pneumonia, unspecified organism Code(s): J18.9 - Pneumonia, unspecified organism Status: Acute Assessment and Plan: The patient has an acute right upper lobe pneumonia regarding the rest of her lungs which showed diffuse interstitial pattern that is difficult to know whether this will improve over time or become permanent as a sequelae of her COVID-19 infection in May 2020. . Repeat high-resolution of the chest in 3 months. Continue oxygenation to keep sats 92-96%. Continue DVT prophylaxis and PT OT and ambulation as soon as the patient can safely do so. The plan today is to discharge with home with oral antibiotics for RUL pneumonia to complete 7 days Subjective Date/time seen: 07/12/20 10:59 Interval history: Doing well and being discharged today on oral antibiotics Review of Systems Review of Systems: All systems reviewed & are unremarkable except as noted in HPI and below Exam Const: General: cooperative, comfortable, no acute distress, well developed, alert, awake and Physically active HENMT: Head: normal to inspection and normocephalic Eyes: General: appearance normal, both eyes and all related structures Resp: Effort & Inspection: normal respiratory effort and able to speak in complete sentences Auscultation: crackles and diminished lung sounds Cardio: Jugular venous distension: no JVD Rate: regular rate Rhythm: regular rhythm Heart sounds: S1 normal heart sound present and S2 normal heart sound present GI: Inspection: normal to inspection Auscultation: normal bowel sounds Skin: General skin exam: no rashes or lesions noted and ecchymosis Neuro: Speech: normal speech Extrem: General: normal to inspection and no clubbing, cyanosis or edema Objective Data Vital Signs Vital Signs: Vital Signs - 24 hr 07/11/20 14:00 07/11/20 21:46 07/12/20 06:00 Temperature 37.1 C 36.5 C 36.4 C L Pulse Rate 74 80 69 Respiratory Rate 18 18 14 Blood Pressure 104/54 L 123/50 L 126/49 L Pulse Oximetry 96 93 94 07/12/20 08:36 Temperature Pulse Rate Respiratory Rate Blood Pressure Pulse Oximetry 90 Intake/Output Intake/Output: Intake & Output 01/07/10/20 07/11/20 07/12/20 23:59 23:59 23:59 23:59 Intake Total 570 484 894 300 Output Total 300 200 Balance 570 184 694 300 Meds/Results Medications: Active Medications Generic Name Dose Route Start Last Admin Trade Name Freq PRN Reason Stop Dose Admin Acetaminophen 650 mg 07/04/20 22:42 07/12/20 08:38 Acetaminophen 325 Mg Tablet PO 650 mg Q4H PRN Administration Mild Pain (1-3) Or Fever Al Hydrox/Mg Hydrox/Simethicone 30 ml 07/06/20 17:48 Mag Hydrox/Al Hydrox/Simeth 30 Ml Udc PO Q6H PRN Indigestion Albuterol 2.5 mg 07/08/20 10:43 Albuterol Sulfate Neb 2.5 Mg/0.5 Ml Inh INHALATION Q6HRT PRN Shortness Of Breath Albuterol/Ipratropium 1 puff 07/08/20 12:00 07/12/20 08:38 Albuterol/Ipratropium (*Sp) 4 Gm Respimat INHALATION 08/07/20 12:01 1 puff QIDRT RONALDO Administration Aspirin 325 mg 07/06/20 21:00 07/07/20 20:32 Aspirin 325 Mg Enteric Tablet PO 325 mg Q12HR RONALDO Administration Buspirone HCl 10 mg 07/05/20 09:00 07/12/20 08:40 Buspirone Hcl 10 Mg Tablet PO 10 mg TID RONALDO Administration Calcium Carbonate 500 mg 07/07/20 09:00 07/12/20 08:40 Calcium Carbonate (Oscal) 500 Mg Tablet PO 500 mg DAILY RONALDO Administration Divalproex Sodium 250 mg 07/05/20 08:00 07/12/20 08:39 Divalproex Sodium 250 Mg Tab.Er.24h PO 250 mg BIDWM RONALDO Administration Donepezil HCl 10 mg 07/05/20 21:00 07/11/20 20:00 Donepezil Hcl 10 Mg Tablet PO 10 mg HS RONALDO Administration Enoxaparin Sodium 30 mg 07/08/20 21:00 07/11/20 20:00
--- NOTE | 2020-07-12 14:26 | PC.NURSE ---
I spoke with Dr. Carreno about the patient being discharged. The hospitalist requested I call him and ask what DVT prophylaxis he would like the patient to be discharged with. He stated he would like the Hospitalist to determine the DVT prophylaxis. I spoke with Dr. Kirkland and he is okay for discharge and has no further recommendations. I spoke with care coordination and they stated the patient is able to discharge. The nurse healthcare manager Jody spoke with [facility] and they stated the patient does not need to have an updated Covid swab to return.
[2020-07-12 15:51] VITALS: BP 138/54; PULSE 88; RESP 20; TEMP 36.8; O2SAT 94
== END 2020-07-12 16:00 | DRG 480 ==
LOC: ANHED 13:21 → ANH2MED 14:16
PROVIDERS: Emergency Medicine Emergency Medical Services; Internal Medicine; Orthopaedic Surgery; Physician Assistant; Admitting Provider Internal Medicine; Emergency Provider Family Medicine; PCP Family Medicine; Visit Provider Family Medicine
PROC: 0QS636Z Reposition Right Upper Femur with Intramedullary Internal Fixation Device, Percutaneous Approach (ICD-10-PCS; CPT 27245; principal; 2020-07-06 15:00)
DX: S72.141A Displaced intertrochanteric fracture of right femur, initial encounter for closed fracture (principal); J18.9 Pneumonia, unspecified organism; J95.821 Acute postprocedural respiratory failure; J95.89 Other postprocedural complications and disorders of respiratory system, not elsewhere classified; B94.8 Sequelae of other specified infectious and parasitic diseases; Z20.822 Contact with and (suspected) exposure to COVID-19; M06.9 Rheumatoid arthritis, unspecified; J44.9 Chronic obstructive pulmonary disease, unspecified; G30.9 Alzheimer's disease, unspecified; F02.80 Dementia in other diseases classified elsewhere, unspecified severity, without behavioral disturbance, psychotic disturbance, mood disturbance, and anxiety; E03.9 Hypothyroidism, unspecified; E86.0 Dehydration; R19.5 Other fecal abnormalities; D64.9 Anemia, unspecified; Z66 Do not resuscitate; F41.9 Anxiety disorder, unspecified; Z87.891 Personal history of nicotine dependence
CPT/HCPCS: 36415; 36430; 36600; 51702; 70450; 71045; 71275; 73502; 80048; 80076; 80202; 81001; 82274; 82306; 82375; 82607; 82728; 82746; 82805; 83050; 83540; 83550; 83735; 84439; 84443; 85014; 85018; 85025; 85027; 85046; 85610; 85730; 86850; 86900; 86901; 86923; 87040; 92610; 93005; 93306; 94640; 96361; 96365; 97110; 97116; 97161; 97165; 97530; 97535; 99285; A9270; C1713; C9803; G0378; J0131; J0696; J1100; J1650; J1741; J1940; J2405; J2704; J3010; J3370; J3480; J7040; J7050; J7120; P9016; Q9967; U0003; U0005